=== PATIENT | male | born 1955 | race Caucasian/White ===

== ENCOUNTER → 2017-10-29 | Outpatient (CLI) | payer OTHER ==
--- NOTE | 2017-10-30 08:33 | US ---
EXAMINATION TYPE: US carotid duplex BILAT DATE OF EXAM: 10/29/2017 COMPARISON: NONE CLINICAL HISTORY: R55 Syncope, G45.4 Memory Loss. syncope EXAM MEASUREMENTS: RIGHT: Peak Systolic Velocity (PSV) cm/sec ----- Right CCA: 65.9 ----- Right ICA: 93.0 ----- Right ECA: 116.9 ICA/CCA ratio: 1.4 RIGHT: End Diastole cm/sec ----- Right CCA: 12.5 ----- Right ICA: 24.8 ----- Right ECA: 6.9 LEFT: Peak Systolic Velocity (PSV) cm/sec ----- Left CCA: 79.8 ----- Left ICA: 77.9 ----- Left ECA: 100.4 ICA/CCA ratio: 1.0 LEFT: End Diastole cm/sec ----- Left CCA: 12.9 ----- Left ICA: 17.7 ----- Left ECA: 11.1 VERTEBRALS (direction of flow): Right Vertebral: Antegrade Left Vertebral: Antegrade Rhythm: Normal Heterogeneous plaque noted bilaterally with no significant stenosis seen IMPRESSION: 1. Bilateral atherosclerotic plaque with no significant hemodynamic stenosis. Criteria for Assigning % of Stenosis / Diameter reduction (Estimation based on the indirect measurements of the internal carotid artery velocities (ICA PSV). 1. Normal (no stenosis)=ICA PSV < 125 cm/s: ratio < 2.0: ICA EDV<40 cm/s. 2. Less than 50% stenosis=ICA PSV < 125 cm/s: ratio < 2.0: ICA EDV<40 cm/s. 3. 50 to 69% stenosis=ICA PSV of 125 to 230 cm/s: ration 2.0 ? 4.0: ICA EDV 40-100 cm/s. 4. Greater than 70% stenosis to near occlusion= ICA PSV > 230 cm/s: ratio > 4.0: ICA EDV > 100 cm/s. 5. Near occlusion= ICA PSV velocities may be low or undetectable: variable ratio and ICA EDV. 6. Total occlusion=unable to detect flow.
== END | disposition home or self-care (01) ==
LOC: RADUSMAIN 16:04
PROVIDERS: ATTEND Family Medicine
DX: I65.23 Occlusion and stenosis of bilateral carotid arteries (principal); Z88.0 Allergy status to penicillin; Z88.5 Allergy status to narcotic agent; Z91.013 Allergy to seafood; Z91.048 Other nonmedicinal substance allergy status
CPT/HCPCS: 93880

== ENCOUNTER → 2018-05-12 | Outpatient (CLI) | payer OTHER ==
--- NOTE | 2018-05-12 12:34 | CT ---
EXAMINATION TYPE: CT wrist RT wo con DATE OF EXAM: 05/12/2018 COMPARISON: None. HISTORY: Right lateral wrist and thumb pain post fall per patient. Distal radial volar lip fracture p er order. CT DLP: 238 mGycm Automated exposure control for dose reduction was used. FINDINGS: Overlying fiberglass cast is present. There is acute comminuted impacted fracture through the distal radial meta-epiphysis. Fracture line extends to the distal radial ulnar articulation axial image 32. Fracture line extends to the dorsal surface including at base of Lorri's tubercle axial image 35. Ad jacent third extensor compartment tendon appears intact on axial image 34 for reference. Sagittal marianna ges show minimal dorsal angulation of distal radius relative to the lunate. Scapholunate and lunotriq uetral spaces are maintained. There is however intra-articular extension along dorsal surface seen be st coronal image 16 and sagittal image 18. There is tiny 3 mm avulsion type fracture from the ulnar styloid seen best axial image 28. Carpal joint spaces otherwise are preserved. Base of metacarpals felt within normal limits. Muscle bu lk is maintained. IMPRESSION: ACUTE COMMINUTED IMPACTED INTRA-ARTICULAR FRACTURE DISTAL RADIAL META-EPIPHYSIS DETAILED ABOVE. TI [place] AVULSION TYPE FRACTURE ULNAR STYLOID NOTED.
== END | disposition home or self-care (01) ==
LOC: RADCTMAIN 11:23
PROVIDERS: ATTEND Orthopaedic Surgery
DX: S52.571A Other intraarticular fracture of lower end of right radius, initial encounter for closed fracture (principal); S52.611A Displaced fracture of right ulna styloid process, initial encounter for closed fracture

== ENCOUNTER 2020-02-13 12:29 | Inpatient (IN) | payer OTHER ==
[2020-02-13] MEDS ORDERED: SODIUM CHLORIDE 0.9% 1,000 ML IV STA ×2 (13:08→13:52)
--- NOTE | 2020-02-13 13:10 | ED ---
General Adult HPI - General Chief complaint: Weakness Stated complaint: Syncope Time Seen by Provider: 02/13/20 12:32 Source: patient, EMS Mode of arrival: EMS Limitations: no limitations - History of Present Illness Initial comments: Dictation was produced using [employer] dictation software. please excuse any grammatical, word or spelling errors. This patient was cared for during a federal and state declared state of emergency secondary to Covid 19 Chief Complaint: 64-year-old male past medical history of hypertension COPD presents today with presyncope History of Present Illness: And 64-year-old male he woke up this morning feeling very lightheaded. He tried to get up however felt very dizzy lightheaded and slowly went down to the ground. Denies any loss of consciousness. He denies any pain. He doesn't take any blood thinners. EMS was called by his family member who then brought patient to the emergency department. Patient has any pain complaints. He did have runny nose since yesterday. No obvious exposures to anyone with coronavirus. He does feel short of breath only with exertion. He does not feel short of breath currently. Denies any constitutional symptoms. The ROS documented in this emergency department record has been reviewed and confirmed by me. Those systems with pertinent positive or negative responses have been documented in the HPI. All other systems are other negative and/or noncontributory. PHYSICAL EXAM: General Impression: Alert and oriented x3, not in acute distress, cachectic HEENT: Normocephalic atraumatic, extra-ocular movements intact, pupils equal and reactive to light bilaterally, mucous membranes moist. Cardiovascular: Tachycardia regular, no murmurs Chest: Able to complete full sentences, no retractions, no tachypnea, no wheezing Abdomen: abdomen soft, non-tender, non-distended, no organomegaly Musculoskeletal: Pulses present and equal in all extremities, no peripheral edema Motor: no focal deficits noted Neurological: CN II-XII grossly intact, no focal motor or sensory deficits noted Skin: Intact with no visualized rashes Psych: Normal affect and mood ED course: 64-year-old male presents with presyncope. Patient also having urinary Symptoms. Signs upon arrival shows 70% on room air, respiratory 26 pulse rate of 122 Supplemental oxygen with levels measuring in the high 80s low 90s. Continue be tachypneic and a 25. Laboratory evaluation obtained. No leukocytosis. CBC is grossly unremarkable. Panel shows sodium 131. BUN 49. Lactic acid is 4.6. CRP of 381.5. Urinalysis is unremarkable. Chest x-ray shows COPD with extensive airspace disease throughout the left lung which could reflect extensive pneumonia or underlying mass complicated with pneumonia. CT angiogram of the chest was obtained showing no evidence for pulmonary embolism however there is left upper lobe and left lower lobe extensive airspace consolidation. There is no obstruction to the left lower lobe bronchus. Patient was reevaluated at approximately 4:30 PM his oxygen saturations began to drop into the 30s and 40 percents. Patient was resuscitated. Rapid sequence intubation was performed. Patient's oxygen saturation improved. Case is discussed in detail with Dr. Olivares who is on-call license distributor. Was agreeable with ICU admission. Patient also will likely require bronchoscopy in the near future. Patient will be admitted to [facility]. Case was discussed with Dr. Li. She'll be warning in the emergency Department ICU bed becomes available. Sepsis is a concern however less likely given that patient is afebrile and has no leukocytosis however. Patient is covered with vancomycin and cefepime. Patient's lactic acidosis likely secondary to lung disease. Is not obvious that patient is suffering from an infectious process. At this point aggressive IV fluid administration is possibly harmful. EKG interpretation: Ventricular rate 124, sinus tachycardia, WV interval 126, QRS 74, QTC 456. No WV prolongation, no QTC prolongation, no ST or T-wave changes noted. No old EKG for comparison. Overall, this EKG is unremarkable - Related Data Home Medications Medication Instructions Recorded Confirmed Albuterol Nebulized [Ventolin 2.5 mg INHALATION RT-Q6H PRN 08/25/15 02/13/20 Nebulized] Fluticasone Nasal [place] [Flonase 1 spray EA NOSTRIL DAILY 08/25/15 02/13/20 Nasal [place]] Simvastatin [Zocor] 40 mg PO HS 08/25/15 02/13/20 Fluticasone Propionate [Flovent 1 puff INHALATION RT-DAILY 02/13/20 02/13/20 Hfa 110 mcg] Ipratropium/Albuter 20-100Mcg 1 puff INHALATION RT-QID 02/13/20 02/13/20 [Combivent Respimat 20-100Mcg Inhaler] Metoprolol Succinate [Toprol XL] 50 mg PO DAILY 02/13/20 02/13/20 Omeprazole 20 mg PO DAILY 02/13/20 02/13/20 Oxybutynin ER [Ditropan Xl] 15 mg PO DAILY 02/13/20 02/13/20 Allergies Allergy/AdvReac Type Severity Reaction Status Date / Time codeine Allergy Unknown Verified 02/13/20 14:25 Iodine and Iodide Containing Allergy Rash/Hives Verified 02/13/20 14:25 Produc Penicillins Allergy Swelling,it Verified 02/13/20 14:25 le shellfish derived Allergy Rash/Hives Verified 02/13/20 14:25 Review of Systems ROS Statement: Those systems with pertinent positive or pertinent negative responses have been documented in the HPI. ROS Other: All systems not noted in ROS Statement are negative. Past Medical History Past Medical History: COPD, Hypertension History of Any Multi-Drug Resistant Organisms: None Reported Past Surgical History: Orthopedic Surgery Past Psychological History: No Psychological Hx Reported Smoking Status: Current every day smoker Past Alcohol Use History: None Reported Past Drug Use History: None Reported General Exam Limitations: no limitations Course Vital Signs 02/13/20 02/13/20 02/13/20 12:30 12:45 14:00 Temperature 98.1 F Pulse Rate 122 H 123 H Pulse Rate [ 125 H [employer] Of [employer] ] Respiratory 26 H 26 H 25 H Rate Blood Pressure 133/63 83/65 O2 Sat by Pulse 78 L 87 L Oximetry 02/13/20 02/13/20 15:00 16:52 Temperature Pulse Rate 117 H Pulse Rate [ [employer] ] Respiratory 26 H 24 Rate Blood Pressure 114/89 O2 Sat by Pulse 90 L 99 Oximetry Procedures - Intubation Sedative: Etomidate Mg Given: 20 Paralytic: Succinylcholine Mg Given: 100 Laryngoscope: [place] Size: 3 ET Tube Size: 7.5 ET Tube Uncuffed: No Tube Secured Depth (cm): 22 Tube Secured Location: lips Tube Placement Confirmation: visualized tube passing through cords, equal breath sounds bilaterally, no breath sounds over epigastrium, confirmation by capnometry Patient Tolerated Procedure: well Intubation Complications: none Medical Decision Making - Lab Data Result diagrams: 02/13/20 13:10 02/13/20 13:54 Lab Results 02/13/20 02/13/20 02/13/20 Range/Units 13:10 13:10 13:16 WBC 7.5 (3.8-10.6) k/uL RBC 4.70 (4.30-5.90) m/uL Hgb 14.6 (13.0-17.5) gm/dL Hct 45.6 (39.0-53.0) % MCV 97.2 (80.0-100.0) fL MCH 31.1 (25.0-35.0) pg MCHC 32.1 (31.0-37.0) g/dL RDW 13.4 (11.5-15.5) % Plt Count 211 (150-450) k/uL MPV 8.1 Neutrophils % (Manual) 57 % Band Neuts % (Manual) 23 % Lymphocytes % (Manual) 9 % Monocytes % (Manual) 3 % Metamyelocytes % 9 % Myelocytes % 1 % Neutrophils # (Manual) 6.00 (1.3-7.7) k/uL Lymphocytes # (Manual) 0.68 L (1.0-4.8) k/uL Monocytes # (Manual) 0.23 (0-1.0) k/uL Metamyelocytes # (Man) 0.68 H (0) k/uL Myelocytes # (Manual) 0.08 H (0) k/uL Nucleated RBCs 0 (0-0) /100 WBC Manual Slide Review Performed Toxic Granulation Present Anisocytosis (manual) Present PT (9.0-12.0) sec INR (<1.2) APTT (22.0-30.0) sec D-Dimer (<0.60) mg/L FEU Sample Site ABG pH (7.35-7.45) ABG pCO2 (35-45) mmHg ABG pO2 (83-108) mmHg ABG HCO3 (21-25) mmol/L ABG Total CO2 (19-24) mmol/L ABG O2 Saturation (94-97) % ABG Base Excess mmol/L Floyd Test FiO2 % Sodium (137-145) mmol/L Potassium (3.5-5.1) mmol/L Chloride (98-107) mmol/L Carbon Dioxide (22-30) mmol/L Anion Gap mmol/L BUN (9-20) mg/dL Creatinine (0.66-1.25) mg/dL Est GFR (CKD-EPI)AfAm (>60 ml/min/1.73 sqM) Est GFR (CKD-EPI)NonAf (>60 ml/min/1.73 sqM) Glucose (74-99) mg/dL Lactic Ac Sepsis Rflx Plasma Lactic Acid Elio 4.6 H* (0.7-2.0) mmol/L Calcium (8.4-10.2) mg/dL Magnesium (1.6-2.3) mg/dL Total Bilirubin (0.2-1.3) mg/dL AST (17-59) U/L ALT (4-49) U/L Alkaline Phosphatase (38-126) U/L Creatine Kinase (55-170) U/L Troponin I (0.000-0.034) ng/mL C-Reactive Protein (<10.0) mg/L Total Protein (6.3-8.2) g/dL Albumin (3.5-5.0) g/dL Urine Color Urine Appearance (Clear) Urine pH (5.0-8.0) Ur Specific [place] (1.001-1.035) Urine Protein (Negative) Urine Glucose (UA) (Negative) Urine Ketones (Negative) Urine Blood (Negative) Urine Nitrite (Negative) Urine Bilirubin (Negative) Urine Urobilinogen (<2.0) mg/dL Ur Leukocyte Esterase (Negative) Urine RBC (0-5) /hpf Urine WBC (0-5) /hpf Hyaline Casts (0-2) /lpf Urine Mucus (None) /hpf Urine Sperm (None) /hpf Coronavirus (PCR) Not Detected (Not Detectd) 02/13/20 02/13/20 02/13/20 Range/Units 13:45 13:54 13:54 WBC (3.8-10.6) k/uL RBC (4.30-5.90) m/uL Hgb (13.0-17.5) gm/dL Hct (39.0-53.0) % MCV (80.0-100.0) fL MCH (25.0-35.0) pg MCHC (31.0-37.0) g/dL RDW (11.5-15.5) % Plt Count (150-450) k/uL MPV Neutrophils % (Manual) % Band Neuts % (Manual) % Lymphocytes % (Manual) % Monocytes % (Manual) % Metamyelocytes % % Myelocytes % % Neutrophils # (Manual) (1.3-7.7) k/uL Lymphocytes # (Manual) (1.0-4.8) k/uL Monocytes # (Manual) (0-1.0) k/uL Metamyelocytes # (Man) (0) k/uL Myelocytes # (Manual) (0) k/uL Nucleated RBCs (0-0) /100 WBC Manual Slide Review Toxic Granulation Anisocytosis (manual) PT (9.0-12.0) sec INR (<1.2) APTT (22.0-30.0) sec D-Dimer (<0.60) mg/L FEU Sample Site ABG pH (7.35-7.45) ABG pCO2 (35-45) mmHg ABG pO2 (83-108) mmHg ABG HCO3 (21-25) mmol/L ABG Total CO2 (19-24) mmol/L ABG O2 Saturation (94-97) % ABG Base Excess mmol/L Floyd Test FiO2 % Sodium 131 L (137-145) mmol/L Potassium 4.6 (3.5-5.1) mmol/L Chloride 101 (98-107) mmol/L Carbon Dioxide 24 (22-30) mmol/L Anion Gap 6 mmol/L BUN 49 H (9-20) mg/dL Creatinine 1.04 (0.66-1.25) mg/dL Est GFR (CKD-EPI)AfAm 89 (>60 ml/min/1.73 sqM) Est GFR (CKD-EPI)NonAf 77 (>60 ml/min/1.73 sqM) Glucose 105 H (74-99) mg/dL Lactic Ac Sepsis Rflx Y Plasma Lactic Acid Elio (0.7-2.0) mmol/L Calcium 8.5 (8.4-10.2) mg/dL Magnesium 2.2 (1.6-2.3) mg/dL Total Bilirubin 0.8 (0.2-1.3) mg/dL AST 31 (17-59) U/L ALT 24 (4-49) U/L Alkaline Phosphatase 53 (38-126) U/L Creatine Kinase 116 (55-170) U/L Troponin I 0.030 (0.000-0.034) ng/mL C-Reactive Protein 381.5 H (<10.0) mg/L Total Protein 5.4 L (6.3-8.2) g/dL Albumin 2.7 L (3.5-5.0) g/dL Urine Color Urine Appearance (Clear) Urine pH (5.0-8.0) Ur Specific [place] (1.001-1.035) Urine Protein (Negative) Urine Glucose (UA) (Negative) Urine Ketones (Negative) Urine Blood (Negative) Urine Nitrite (Negative) Urine Bilirubin (Negative) Urine Urobilinogen (<2.0) mg/dL Ur Leukocyte Esterase (Negative) Urine RBC (0-5) /hpf Urine WBC (0-5) /hpf Hyaline Casts (0-2) /lpf Urine Mucus (None) /hpf Urine Sperm (None) /hpf Coronavirus (PCR) (Not Detectd) 02/13/20 02/13/20 02/13/20 Range/Units 13:58 15:23 15:55 WBC (3.8-10.6) k/uL RBC (4.30-5.90) m/uL Hgb (13.0-17.5) gm/dL Hct (39.0-53.0) % MCV (80.0-100.0) fL MCH (25.0-35.0) pg MCHC (31.0-37.0) g/dL RDW (11.5-15.5) % Plt Count (150-450) k/uL MPV Neutrophils % (Manual) % Band Neuts % (Manual) % Lymphocytes % (Manual) % Monocytes % (Manual) % Metamyelocytes % % Myelocytes % % Neutrophils # (Manual) (1.3-7.7) k/uL Lymphocytes # (Manual) (1.0-4.8) k/uL Monocytes # (Manual) (0-1.0) k/uL Metamyelocytes # (Man) (0) k/uL Myelocytes # (Manual) (0) k/uL Nucleated RBCs (0-0) /100 WBC Manual Slide Review Toxic Granulation Anisocytosis (manual) PT 11.1 (9.0-12.0) sec INR 1.1 (<1.2) APTT 26.4 (22.0-30.0) sec D-Dimer 11.14 H (<0.60) mg/L FEU Sample Site r rad ABG pH 7.24 L (7.35-7.45) ABG pCO2 55 H (35-45) mmHg ABG pO2 77 L (83-108) mmHg ABG HCO3 24 (21-25) mmol/L ABG Total CO2 26 H (19-24) mmol/L ABG O2 Saturation 93.5 L (94-97) % ABG Base Excess -3.6 mmol/L Floyd Test Yes FiO2 40 % Sodium (137-145) mmol/L Potassium (3.5-5.1) mmol/L Chloride (98-107) mmol/L Carbon Dioxide (22-30) mmol/L Anion Gap mmol/L BUN (9-20) mg/dL Creatinine (0.66-1.25) mg/dL Est GFR (CKD-EPI)AfAm (>60 ml/min/1.73 sqM) Est GFR (CKD-EPI)NonAf (>60 ml/min/1.73 sqM) Glucose (74-99) mg/dL Lactic Ac Sepsis Rflx Plasma Lactic Acid Elio (0.7-2.0) mmol/L Calcium (8.4-10.2) mg/dL Magnesium (1.6-2.3) mg/dL Total Bilirubin (0.2-1.3) mg/dL AST (17-59) U/L ALT (4-49) U/L Alkaline Phosphatase (38-126) U/L Creatine Kinase (55-170) U/L Troponin I (0.000-0.034) ng/mL C-Reactive Protein (<10.0) mg/L Total Protein (6.3-8.2) g/dL Albumin (3.5-5.0) g/dL Urine Color Yellow Urine Appearance Cloudy (Clear) Urine pH 6.0 (5.0-8.0) Ur Specific [place] 1.023 (1.001-1.035) Urine Protein 1+ H (Negative) Urine Glucose (UA) Negative (Negative) Urine Ketones Negative (Negative) Urine Blood Trace H (Negative) Urine Nitrite Negative (Negative) Urine Bilirubin Negative (Negative) Urine Urobilinogen 2.0 (<2.0) mg/dL Ur Leukocyte Esterase Negative (Negative) Urine RBC 4 (0-5) /hpf Urine WBC 8 H (0-5) /hpf Hyaline Casts 15 H (0-2) /lpf Urine Mucus Occasional H (None) /hpf Urine Sperm Moderate H (None) /hpf Coronavirus (PCR) (Not Detectd) Critical Care Time Critical Care Time: Yes Total Critical Care Time: 33 Disposition Clinical Impression: Acute respiratory failure with hypoxia, Pre-syncope Disposition: ADMITTED IP TO THIS [facility] Condition: Critical Referrals: Francisco Nolan DO [Primary Care Provider] - 1-2 days Decision Time: 17:05
--- NOTE | 2020-02-13 13:35 | XR ---
EXAMINATION TYPE: XR chest 1V portable DATE OF EXAM: 02/13/2020 Comparison: None Clinical History: 64-year-old male tachycardia, weakness, hypoxia Findings: Heart normal size. Atherosclerotic arch calcifications. Hyperinflation. Extensive consolidation throu ghout the left lung. Impression: COPD with extensive airspace disease throughout the left lung. Findings could reflect extensive pneum onia or underlying mass complicated with pneumonia. Follow-up after treatment to ensure clearance.
[2020-02-13 13:36] LABS: HCT 45.6 % (39.0-53.0); HGB 14.6 gm/dL (13.0-17.5); MCH 31.1 pg (25.0-35.0); MCHC 32.1 g/dL (31.0-37.0); MCV 97.2 fL (80.0-100.0); Mean Platelet Volume 8.1; Platelet Count 211 k/uL (150-450); RDW 13.4 % (11.5-15.5); WBC 7.5 k/uL (3.8-10.6)
[2020-02-13 14:09] LABS: Anisocytosis (M) Present; Band Neutrophils % 23 %; Lymphocytes # (M) 0.68 k/uL (1.0-4.8); Metamyelocytes # (M) 0.68 k/uL (0); Metamyelocytes % 9 %; Monocytes # (M) 0.23 k/uL (0-1.0); Myelocytes # (M) 0.08 k/uL (0); Myelocytes % 1 %; Neutrophils % (M) 57 %; Nucleated Red Blood Cells 0 /100 WBC (0-0); Total Cells Counted 200; Toxic Granulation Present
[2020-02-13 14:26] LABS: Albumin 2.7 g/dL (3.5-5.0); Calcium 8.5 mg/dL (8.4-10.2); Magnesium 2.2 mg/dL (1.6-2.3); Potassium 4.6 mmol/L (3.5-5.1); Total Bilirubin 0.8 mg/dL (0.2-1.3); Total Protein 5.4 g/dL (6.3-8.2)
[2020-02-13 14:32] LABS: INR 1.1 (<1.2); Partial Thromboplastin Time 26.4 sec (22.0-30.0); Prothrombin Time 11.1 sec (9.0-12.0)
[2020-02-13 14:36] LABS: C Reactive Protein 381.5 mg/L (<10.0)
[2020-02-13 14:44] LABS: D-Dimer 11.14 mg/L FEU (<0.60)
[2020-02-13] MEDS ORDERED: FAMOTIDINE 20 MG/2 ML VIAL IV STA (15:06)
[2020-02-13] MEDS ORDERED: diphenhydrAMINE 50 MG/ML 1 ML VIAL IVP STA (15:06)
[2020-02-13] MEDS ORDERED: methylPREDNISolone SOD SUCCI 125 MG/2 ML VIAL IV STA (15:06)
[2020-02-13 15:43] LABS: Appearance,Urine Cloudy (Clear); Bilirubin,Urine Negative (Negative); Blood,Urine Trace (Negative); Color,Urine Yellow; Glucose,Urine (UA) Negative (Negative); Hyaline Casts,Urine 15 /lpf (0-2); Ketones,Urine Negative (Negative); Leukocyte Esterase,Urine Negative (Negative); Mucus,Urine Occasional /hpf; Nitrite,Urine Negative (Negative); Protein,Urine 1+ (Negative); RBC,Urine 4 /hpf (0-5); Specific Gravity,Urine 1.023 (1.001-1.035); Sperm,Urine Moderate /hpf; WBC,Urine 8 /hpf (0-5)
[2020-02-13 15:59] LABS: ABG Base Excess -3.6 mmol/L; ABG HCO3 24 mmol/L (21-25); ABG Oxygen Saturation 93.5 % (94-97); ABG PCO2 55 mmHg (35-45); ABG PH 7.24 (7.35-7.45); ABG PO2 77 mmHg (83-108); ABG TCO2 26 mmol/L (19-24); Allen Test Performed? Yes
--- NOTE | 2020-02-13 16:08 | CT ---
EXAMINATION TYPE: CT angio chest DATE OF EXAM: 02/13/2020 COMPARISON: None HISTORY: elevated d-dimer CT DLP: 234.8 mGycm Automated exposure control for dose reduction was used. CONTRAST: Performed with IV Contrast, patient injected with 100 mL of Isovue 370. There are 3-D post processed images. There is diffuse pulmonary emphysema. There is bullous disease. There are mediastinal multiple lymph nodes measuring up to 1.5 cm. There are no hilar masses. There is dense airspace consolidation in the left lung involving the left lower lobe and significant portion of the left upper lobe. There is apparent complete occlusion of the left lower lobe bronchus. Thoracic aorta is intact. There is no aneurysm or dissection. There is normal contrast opacification of the pulmonary arteries. There are no filling defects. Thoracic vertebra have normal spacing and alignment. There is no compression fracture. Sternum is int act. The ribs appear intact. IMPRESSION: No evidence of pulmonary embolism. Left upper lobe and left lower lobe extensive airspace consolidation. Obstruction left lower lobe bro nchus. Pulmonary emphysema. Nonspecific mediastinal lymph nodes. Likely inflammatory.
[2020-02-13] MEDS ORDERED: ETOMIDATE 2 MG/ML 10 ML VIAL IVP STA (16:45)
[2020-02-13] MEDS ORDERED: SUCCINYLCHOLINE CHLORIDE VIAL 200 MG/10 ML VIAL IV STA (16:46)
[2020-02-13] MEDS ORDERED: NALOXONE 0.4 MG/ML 1 ML VIAL IV PRN (16:52)
[2020-02-13] MEDS ORDERED: CEFEPIME 2 GM in SODIUM CHLORIDE 0.9% 100 ML IVPB STA (16:53)
[2020-02-13] MEDS ORDERED: VANCOMYCIN IV PER PHARMACY 1 EACH MISC MISCELLANE PRN (16:54)
--- NOTE | 2020-02-13 17:19 | XR ---
EXAMINATION TYPE: XR chest 1V DATE OF EXAM: 02/13/2020 COMPARISON: 02/13/2020 HISTORY: Check tube placement TECHNIQUE: Single view FINDINGS: Endotracheal tube is 5 cm from the bandar. There is nasogastric tube in the gastric fundus. There is diffuse airspace consolidation in the left lung there is pulmonary emphysema. There is no d efinite heart failure. Heart size is normal. IMPRESSION: Tubing in good position. Extensive airspace consolidation in the left lung unchanged comp ared to the exam 4 hours ago.
[2020-02-13] MEDS ORDERED: VANCOMYCIN 1,000 MG in SODIUM CHLORIDE 0.9% 250 ML IVPB ONE (17:30)
[2020-02-13 17:36] LABS: ABG Base Excess -6.4 mmol/L; ABG HCO3 21 mmol/L (21-25); ABG Oxygen Saturation 91.7 % (94-97); ABG PCO2 53 mmHg (35-45); ABG PH 7.22 (7.35-7.45); ABG PO2 73 mmHg (83-108); ABG TCO2 23 mmol/L (19-24); Allen Test Performed? Yes
--- NOTE | 2020-02-13 19:24 | CONS ---
CONSULTATION PULMONARY/CRITICAL CARE CONSULTATION: DATE OF SERVICE: February 13, 2020. This is a 64-year-old male who is evaluated in the emergency department. The patient apparently came in via EMS. He arrived here at 12:29 p.m. today. He apparently came in with complaints of weakness. He apparently woke up this morning and felt very lightheaded. He apparently tried to get up and felt very dizzy and apparently fell to the ground. There was no loss of consciousness. Denies any chest pain. EMS was called by family members. The patient was transported to the ER where he was evaluated. Apparently he was complaining of a bit of a runny nose and has no apparent exposures to anyone with coronavirus. He apparently did complain of being short of breath on exertion. No fever or chills. No other history could be obtained by Dr. Chowdhury in the emergency room. Apparently on arrival, his saturations were 70% on room air, with a respiratory rate of 26 and pulse rate of 122. He received supplemental oxygen. A chest x-ray showed extensive left lung pneumonia. A CT angiogram was also done which showed no evidence of pulmonary embolism, but extensive left upper lobe and left lower lobe airspace consolidation. Subsequent to that, his saturations began to drop and he developed worsening respiratory status and rapid sequence intubation was performed. Dr. Chowdhury called me. We came down to see the patient in the emergency room. Currently, he is on the volume assist-control modality, rate of 20, tidal volume 500, FiO2 100%, PEEP of 5. Blood gases showed a pO2 of 77, pCO2 of 55 and a pH of 7.24. This initial blood gas was done on 5 L. Followup blood gas while vented, shows a pO2 of 72, pCO2 of 52 and a pH is 7.21. The rate was increased from 20 to 26. His chest x-ray and CT scan shows extensive left-sided pneumonia. He is currently on saline, unknown rate, and also propofol at 5 mcg/kg/minute. We are attempting to find a bed for him in the ICU, but currently there is nothing available. CURRENT MEDICATIONS: Include albuterol, Flonase nasal spray, Zocor, Flovent, Combivent, metoprolol, omeprazole, and Ditropan XL. ALLERGIES: Include CODEINE, IODINE CONTAINING PRODUCTS, PENICILLIN, AND SHELLFISH. MEDICAL HISTORY: Apparently includes hypertension, hyperlipidemia, and COPD. SURGICAL HISTORY: Includes some orthopedic procedures. SOCIAL HISTORY: Positive for current everyday tobacco use. No alcohol use or illicit drug use. REVIEW OF SYSTEMS: Cannot be obtained. FAMILY HISTORY: Not available. PHYSICAL EXAMINATION: VITAL SIGNS: Current vital signs include a temperature which is 98.1, heart rate 117, respiratory rate 26, blood pressure 120/61, mean 80, saturations are in the mid 90s. Currently sedated. HEENT: Examination is grossly unremarkable. There is an orally placed endotracheal tube. NECK: Supple. Full range of motion. CARDIOVASCULAR: Examination reveals tachycardia. Heart rate about 115. Appears to be in sinus rhythm. LUNGS: Reveal diffuse coarse bilateral rhonchi. Breath sounds diminished on the left. Crackles are noted on the left. ABDOMEN: Soft. EXTREMITIES: Intact. No edema. SKIN: Without rash. NEUROLOGIC: Examination cannot be adequately assessed as he is currently sedated. LABS: Reviewed. Again blood gases have been noted. The 1st blood gas was on 5 L. A 2nd blood gas was status post intubation. White count 7.5, hemoglobin 14.6, hematocrit 45.6, platelet count 211,000. PT/INR normal. PTT 26.4. D-dimer 11.14. Sodium 131, potassium 4.6, chloride 101, CO2 24, anion gap is 6,. BUN and creatinine were 49 and 1.04. Lactic acid 4.6 repeat is not yet done. C-reactive protein 381.5. Albumin 2.7. Urine is 1+ protein, trace blood, 8 WBCs. Coronavirus test by PCR was negative. Microbiology is pending or negative. Chest x-ray shows an extensive infiltrate in the left lung. The right lung is relatively clear. There are changes of COPD. A CT angiogram was negative for PE. There was extensive left upper lobe and left lower lobe airspace consolidation. There was obstruction to the left lower lobe bronchus. Nonspecific mediastinal adenopathy is noted, probably inflammatory in nature. Post intubation, no significant change to the left chest. The endotracheal tube is above the tracheal bandar. CURRENT MEDICATIONS: Include Narcan, vancomycin. ASSESSMENT: 1. Acute hypoxemic respiratory failure, secondary to extensive left-sided pneumonia, requiring intubation and mechanical ventilation on February 13, 2020. 2. History of chronic obstructive pulmonary disease from chronic tobacco use. 3. History of hypertension. 4. History of hyperlipidemia. PLAN: The patient will be admitted to the ICU. We will write some basic orders including DuoNeb, ceftriaxone, Rocephin, and maintain the vancomycin. Additional recommendations and suggestions are forthcoming. We will also add some Perforomist and Pulmicort. Tube feeds will start. Eventually he will probably need bronchoscopy. Prognosis is very guarded. MMODL / IJN: [id number] /
[2020-02-13] MEDS ORDERED: MIDAZOLAM 1 MG/ML 5 ML VIAL IV STA (19:25)
--- NOTE | 2020-02-13 19:27 | ED ---
Medical Decision Making - Lab Data Result diagrams: 02/13/20 13:10 02/13/20 13:54 Lab Results 02/13/20 02/13/20 02/13/20 Range/Units 13:10 13:10 13:16 WBC 7.5 (3.8-10.6) k/uL RBC 4.70 (4.30-5.90) m/uL Hgb 14.6 (13.0-17.5) gm/dL Hct 45.6 (39.0-53.0) % MCV 97.2 (80.0-100.0) fL MCH 31.1 (25.0-35.0) pg MCHC 32.1 (31.0-37.0) g/dL RDW 13.4 (11.5-15.5) % Plt Count 211 (150-450) k/uL MPV 8.1 Neutrophils % (Manual) 57 % Band Neuts % (Manual) 23 % Lymphocytes % (Manual) 9 % Monocytes % (Manual) 3 % Metamyelocytes % 9 % Myelocytes % 1 % Neutrophils # (Manual) 6.00 (1.3-7.7) k/uL Lymphocytes # (Manual) 0.68 L (1.0-4.8) k/uL Monocytes # (Manual) 0.23 (0-1.0) k/uL Metamyelocytes # (Man) 0.68 H (0) k/uL Myelocytes # (Manual) 0.08 H (0) k/uL Nucleated RBCs 0 (0-0) /100 WBC Manual Slide Review Performed Toxic Granulation Present Anisocytosis (manual) Present PT (9.0-12.0) sec INR (<1.2) APTT (22.0-30.0) sec D-Dimer (<0.60) mg/L FEU Sample Site ABG pH (7.35-7.45) ABG pCO2 (35-45) mmHg ABG pO2 (83-108) mmHg ABG HCO3 (21-25) mmol/L ABG Total CO2 (19-24) mmol/L ABG O2 Saturation (94-97) % ABG Base Excess mmol/L Floyd Test FiO2 % Sodium (137-145) mmol/L Potassium (3.5-5.1) mmol/L Chloride (98-107) mmol/L Carbon Dioxide (22-30) mmol/L Anion Gap mmol/L BUN (9-20) mg/dL Creatinine (0.66-1.25) mg/dL Est GFR (CKD-EPI)AfAm (>60 ml/min/1.73 sqM) Est GFR (CKD-EPI)NonAf (>60 ml/min/1.73 sqM) Glucose (74-99) mg/dL Lactic Ac Sepsis Rflx Plasma Lactic Acid Elio 4.6 H* (0.7-2.0) mmol/L Calcium (8.4-10.2) mg/dL Magnesium (1.6-2.3) mg/dL Total Bilirubin (0.2-1.3) mg/dL AST (17-59) U/L ALT (4-49) U/L Alkaline Phosphatase (38-126) U/L Creatine Kinase (55-170) U/L Troponin I (0.000-0.034) ng/mL C-Reactive Protein (<10.0) mg/L Total Protein (6.3-8.2) g/dL Albumin (3.5-5.0) g/dL Urine Color Urine Appearance (Clear) Urine pH (5.0-8.0) Ur Specific [place] (1.001-1.035) Urine Protein (Negative) Urine Glucose (UA) (Negative) Urine Ketones (Negative) Urine Blood (Negative) Urine Nitrite (Negative) Urine Bilirubin (Negative) Urine Urobilinogen (<2.0) mg/dL Ur Leukocyte Esterase (Negative) Urine RBC (0-5) /hpf Urine WBC (0-5) /hpf Hyaline Casts (0-2) /lpf Urine Mucus (None) /hpf Urine Sperm (None) /hpf Coronavirus (PCR) Not Detected (Not Detectd) 02/13/20 02/13/20 02/13/20 Range/Units 13:45 13:54 13:54 WBC (3.8-10.6) k/uL RBC (4.30-5.90) m/uL Hgb (13.0-17.5) gm/dL Hct (39.0-53.0) % MCV (80.0-100.0) fL MCH (25.0-35.0) pg MCHC (31.0-37.0) g/dL RDW (11.5-15.5) % Plt Count (150-450) k/uL MPV Neutrophils % (Manual) % Band Neuts % (Manual) % Lymphocytes % (Manual) % Monocytes % (Manual) % Metamyelocytes % % Myelocytes % % Neutrophils # (Manual) (1.3-7.7) k/uL Lymphocytes # (Manual) (1.0-4.8) k/uL Monocytes # (Manual) (0-1.0) k/uL Metamyelocytes # (Man) (0) k/uL Myelocytes # (Manual) (0) k/uL Nucleated RBCs (0-0) /100 WBC Manual Slide Review Toxic Granulation Anisocytosis (manual) PT (9.0-12.0) sec INR (<1.2) APTT (22.0-30.0) sec D-Dimer (<0.60) mg/L FEU Sample Site ABG pH (7.35-7.45) ABG pCO2 (35-45) mmHg ABG pO2 (83-108) mmHg ABG HCO3 (21-25) mmol/L ABG Total CO2 (19-24) mmol/L ABG O2 Saturation (94-97) % ABG Base Excess mmol/L Floyd Test FiO2 % Sodium 131 L (137-145) mmol/L Potassium 4.6 (3.5-5.1) mmol/L Chloride 101 (98-107) mmol/L Carbon Dioxide 24 (22-30) mmol/L Anion Gap 6 mmol/L BUN 49 H (9-20) mg/dL Creatinine 1.04 (0.66-1.25) mg/dL Est GFR (CKD-EPI)AfAm 89 (>60 ml/min/1.73 sqM) Est GFR (CKD-EPI)NonAf 77 (>60 ml/min/1.73 sqM) Glucose 105 H (74-99) mg/dL Lactic Ac Sepsis Rflx Y Plasma Lactic Acid Elio (0.7-2.0) mmol/L Calcium 8.5 (8.4-10.2) mg/dL Magnesium 2.2 (1.6-2.3) mg/dL Total Bilirubin 0.8 (0.2-1.3) mg/dL AST 31 (17-59) U/L ALT 24 (4-49) U/L Alkaline Phosphatase 53 (38-126) U/L Creatine Kinase 116 (55-170) U/L Troponin I 0.030 (0.000-0.034) ng/mL C-Reactive Protein 381.5 H (<10.0) mg/L Total Protein 5.4 L (6.3-8.2) g/dL Albumin 2.7 L (3.5-5.0) g/dL Urine Color Urine Appearance (Clear) Urine pH (5.0-8.0) Ur Specific [place] (1.001-1.035) Urine Protein (Negative) Urine Glucose (UA) (Negative) Urine Ketones (Negative) Urine Blood (Negative) Urine Nitrite (Negative) Urine Bilirubin (Negative) Urine Urobilinogen (<2.0) mg/dL Ur Leukocyte Esterase (Negative) Urine RBC (0-5) /hpf Urine WBC (0-5) /hpf Hyaline Casts (0-2) /lpf Urine Mucus (None) /hpf Urine Sperm (None) /hpf Coronavirus (PCR) (Not Detectd) 02/13/20 02/13/20 02/13/20 Range/Units 13:58 15:23 15:55 WBC (3.8-10.6) k/uL RBC (4.30-5.90) m/uL Hgb (13.0-17.5) gm/dL Hct (39.0-53.0) % MCV (80.0-100.0) fL MCH (25.0-35.0) pg MCHC (31.0-37.0) g/dL RDW (11.5-15.5) % Plt Count (150-450) k/uL MPV Neutrophils % (Manual) % Band Neuts % (Manual) % Lymphocytes % (Manual) % Monocytes % (Manual) % Metamyelocytes % % Myelocytes % % Neutrophils # (Manual) (1.3-7.7) k/uL Lymphocytes # (Manual) (1.0-4.8) k/uL Monocytes # (Manual) (0-1.0) k/uL Metamyelocytes # (Man) (0) k/uL Myelocytes # (Manual) (0) k/uL Nucleated RBCs (0-0) /100 WBC Manual Slide Review Toxic Granulation Anisocytosis (manual) PT 11.1 (9.0-12.0) sec INR 1.1 (<1.2) APTT 26.4 (22.0-30.0) sec D-Dimer 11.14 H (<0.60) mg/L FEU Sample Site r rad ABG pH 7.24 L (7.35-7.45) ABG pCO2 55 H (35-45) mmHg ABG pO2 77 L (83-108) mmHg ABG HCO3 24 (21-25) mmol/L ABG Total CO2 26 H (19-24) mmol/L ABG O2 Saturation 93.5 L (94-97) % ABG Base Excess -3.6 mmol/L Floyd Test Yes FiO2 40 % Sodium (137-145) mmol/L Potassium (3.5-5.1) mmol/L Chloride (98-107) mmol/L Carbon Dioxide (22-30) mmol/L Anion Gap mmol/L BUN (9-20) mg/dL Creatinine (0.66-1.25) mg/dL Est GFR (CKD-EPI)AfAm (>60 ml/min/1.73 sqM) Est GFR (CKD-EPI)NonAf (>60 ml/min/1.73 sqM) Glucose (74-99) mg/dL Lactic Ac Sepsis Rflx Plasma Lactic Acid Elio (0.7-2.0) mmol/L Calcium (8.4-10.2) mg/dL Magnesium (1.6-2.3) mg/dL Total Bilirubin (0.2-1.3) mg/dL AST (17-59) U/L ALT (4-49) U/L Alkaline Phosphatase (38-126) U/L Creatine Kinase (55-170) U/L Troponin I (0.000-0.034) ng/mL C-Reactive Protein (<10.0) mg/L Total Protein (6.3-8.2) g/dL Albumin (3.5-5.0) g/dL Urine Color Yellow Urine Appearance Cloudy (Clear) Urine pH 6.0 (5.0-8.0) Ur Specific [place] 1.023 (1.001-1.035) Urine Protein 1+ H (Negative) Urine Glucose (UA) Negative (Negative) Urine Ketones Negative (Negative) Urine Blood Trace H (Negative) Urine Nitrite Negative (Negative) Urine Bilirubin Negative (Negative) Urine Urobilinogen 2.0 (<2.0) mg/dL Ur Leukocyte Esterase Negative (Negative) Urine RBC 4 (0-5) /hpf Urine WBC 8 H (0-5) /hpf Hyaline Casts 15 H (0-2) /lpf Urine Mucus Occasional H (None) /hpf Urine Sperm Moderate H (None) /hpf Coronavirus (PCR) (Not Detectd) Disposition Clinical Impression: Acute respiratory failure with hypoxia, Pre-syncope Disposition: ADMITTED IP TO THIS [facility] Condition: Critical Decision Time: 19:27 Procedures - Restraint - Face to Face Restraint Occurrence 1 Patient's Immediate Situation: Endangers self safety Patient's Reaction to the Intervention: Appropriate, Calm Patient's Medical & Behavioral Condition: Awake Need to Continue or Terminate Restraint or Seclusion: Continue Face to Face Eval of Restraint Date: 02/13/20 Face to Face Eval of Restraint Time: 17:30
[2020-02-13] MEDS: IPRATROPIUM-ALBUTEROL 3 ML NEB INHALATION SCH (20:05)
[2020-02-13] MEDS: FORMOTEROL FUMARATE 20 MCG/2 ML NEBU INHALATION SCH (20:05)
[2020-02-13] MEDS: BUDESONIDE 1 MG/2 ML NEBU INHALATION SCH (20:05)
[2020-02-14 00:12] LABS: Glucose,Whole Blood 93 mg/dL (75-99)
[2020-02-14] MEDS: IPRATROPIUM-ALBUTEROL 3 ML NEB INHALATION SCH ×7 (00:24→21:25)
[2020-02-14] MEDS ORDERED: ACETAMINOPHEN TAB 325 MG TAB PO PRN (00:37)
[2020-02-14 04:26] LABS: MCH 32.4 pg (25.0-35.0); MCHC 33.2 g/dL (31.0-37.0); MCV 97.5 fL (80.0-100.0); Mean Platelet Volume 8.4; Platelet Count 163 k/uL (150-450); RDW 13.2 % (11.5-15.5); WBC 6.9 k/uL (3.8-10.6)
[2020-02-14 04:32] LABS: Albumin 2.3 g/dL (3.5-5.0); Calcium 7.9 mg/dL (8.4-10.2); Potassium 4.7 mmol/L (3.5-5.1); Total Bilirubin 0.7 mg/dL (0.2-1.3); Total Protein 4.8 g/dL (6.3-8.2)
[2020-02-14 05:25] LABS: ABG Base Excess -6.7 mmol/L; ABG HCO3 19 mmol/L (21-25); ABG Oxygen Saturation 98.9 % (94-97); ABG PCO2 36 mmHg (35-45); ABG PH 7.34 (7.35-7.45); ABG PO2 118 mmHg (83-108); ABG TCO2 20 mmol/L (19-24); Allen Test Performed? Yes
[2020-02-14 06:15] LABS: Band Neutrophils % 47 %; Lymphocytes # (M) 0.21 k/uL (1.0-4.8); Metamyelocytes # (M) 0.07 k/uL (0); Metamyelocytes % 1 %; Monocytes # (M) 0.07 k/uL (0-1.0); Neutrophils % (M) 48 %; Nucleated Red Blood Cells 0 /100 WBC (0-0); Total Cells Counted 100
--- NOTE | 2020-02-14 06:56 | P.PN ---
Subjective Progress Note Date: 02/14/20 64-year-old male patient came into the ED yesterday with generalized weakness and lightheadedness and he felt dizzy and he fell to the ground with no loss of consciousness. Denies having any chest pain. He did have some runny nose and no apparent exposure to coronavirus. He was combining of shortness of breath. No fever. No chills. He is pulse ox was 70% on room air with a respiratory rate of 26 and a heart rate of 122. Chest x-ray showed an extensive left lung pneumonia. CT angiogram was done and showed no evidence of any pulmonary embolism and there was a left upper lobe and left lower lobe airspace consolidation. Subsequently, the patient's respiratory status decompensated and the patient had to be intubated and placed on a mechanical ventilator. He was placed on assist control mode at the rate of 26 with a TV of 500 and FiO2 of 100% with a PEEP of 5. Subsequent blood gases showed some improvement in oxygenation. The patient was started on broad-spectrum antibiotics including a combination of Rocephin and Zithromax and vancomycin. The patient was resuscitated IV fluids. The patient is currently receiving normal saline at the rate of 130s cc an hour after receiving a total of 3 L of bolus in the emergency department. The white cell count was at 7.5 with a hemoglobin of 14.6. There was 23% bandemia on the initial CBC. The rest of the blood work and electrolytes are within normal limits. BUN was slightly elevated at 49. LFTs were within normal. CPK was 116. Troponin was 0.03. The COVID 19 PCR was negative.on today's evaluation, the patient's pH is at 7.34 with a pCO2 of 36 and pO2 of 119 and there is been some improvement in oxygenation. He remains on a PEEP of 5. Chest x-ray still showing dense consolidation of the entire left lung consistent with an airspace disease. tthe blood cultures showing gram- positive cocci and clusters and the patient will be covered with vancomycin. He is afebrile for now. Urine output is in order of 40 mL an hour.he is on no pressors for now. Objective - Vital Signs Vital signs: Vital Signs Temp 99.4 F 02/14/20 04:00 Pulse 105 H 02/14/20 05:00 Resp 26 H 02/14/20 05:00 BP 98/52 02/14/20 05:00 Pulse Ox 94 L 02/14/20 05:00 Intake & Output 02/13/20 02/13/20 02/14/20 06:59 18:59 06:59 Intake Total 4.720 692.839 Output Total 200 645 Balance -195.280 47.839 Weight 52.163 kg 58.7 kg Intake: IV 640 Sodium Chloride 640 Intake, IV Titration 4.720 52.839 Amount propofoL 1,000 mg In 4.720 51.170 Empty Bag 1 bag @ Titrate IV .Q0M ONE Rx#: [id number] propofoL 1,000 mg In 1.669 Empty Bag 1 bag @ Titrate IV .Q0M [facility] Rx#: [id number] Output: Urine 200 645 Other: Voiding Method Indwelling Catheter - Exam Gen. appearance the patient is sedated, comfortable active distress intubated on a mechanical ventilator. Head exam was generally normal. There was no scleral icterus or corneal arcus. Mucous membranes were moist. Neck was supple and without jugular venous distension, thyromegaly, or carotid bruits. Carotids were easily palpable bilaterally. There was no adenopathy. Orogastric and orotracheal tube are both in place. Lungs sounds are diminished in the patient's contacted the left lung base. No scattered wheezes. Cardiac exam revealed the PMI to be normally situated and sized. The rhythm was regular and no extrasystoles were noted during several minutes of auscultation. The first and second heart sounds were normal and physiologic splitting of the second heart sound was noted. There were no murmurs, rubs, clicks, or gallops. Abdominal exam revealed normal bowel sounds. The abdomen was soft, non-tender, and without masses, organomegaly, or appreciable enlargement of the abdominal aorta. Examination of the extremities revealed easily palpable radial, femoral and pedal pulses. There was no cyanosis, clubbing or edema. Examination of the skin revealed no evidence of significant rashes, suspicious appearing nevi or other concerning lesions. Neurologically the patient stated calm and comfortable. - Labs CBC & Chem 7: 02/14/20 03:38 02/14/20 03:38 Labs: Abnormal Lab Results - Last 24 Hours (Table) 02/13/20 02/13/20 02/13/20 Range/Units 13:10 13:10 13:54 RBC (4.30-5.90) m/uL Lymphocytes # (Manual) 0.68 L (1.0-4.8) k/uL Metamyelocytes # (Man) 0.68 H (0) k/uL Myelocytes # (Manual) 0.08 H (0) k/uL D-Dimer (<0.60) mg/L FEU ABG pH (7.35-7.45) ABG pCO2 (35-45) mmHg ABG pO2 (83-108) mmHg ABG HCO3 (21-25) mmol/L ABG Total CO2 (19-24) mmol/L ABG O2 Saturation (94-97) % Sodium 131 L (137-145) mmol/L Carbon Dioxide (22-30) mmol/L BUN 49 H (9-20) mg/dL Creatinine (0.66-1.25) mg/dL Glucose 105 H (74-99) mg/dL Plasma Lactic Acid Elio 4.6 H* (0.7-2.0) mmol/L Calcium (8.4-10.2) mg/dL AST (17-59) U/L C-Reactive Protein 381.5 H (<10.0) mg/L Total Protein 5.4 L (6.3-8.2) g/dL Albumin 2.7 L (3.5-5.0) g/dL Urine Protein (Negative) Urine Blood (Negative) Urine WBC (0-5) /hpf Hyaline Casts (0-2) /lpf Urine Mucus (None) /hpf Urine Sperm (None) /hpf 02/13/20 02/13/20 02/13/20 Range/Units 13:58 15:23 15:55 RBC (4.30-5.90) m/uL Lymphocytes # (Manual) (1.0-4.8) k/uL Metamyelocytes # (Man) (0) k/uL Myelocytes # (Manual) (0) k/uL D-Dimer 11.14 H (<0.60) mg/L FEU ABG pH 7.24 L (7.35-7.45) ABG pCO2 55 H (35-45) mmHg ABG pO2 77 L (83-108) mmHg ABG HCO3 (21-25) mmol/L ABG Total CO2 26 H (19-24) mmol/L ABG O2 Saturation 93.5 L (94-97) % Sodium (137-145) mmol/L Carbon Dioxide (22-30) mmol/L BUN (9-20) mg/dL Creatinine (0.66-1.25) mg/dL Glucose (74-99) mg/dL Plasma Lactic Acid Elio (0.7-2.0) mmol/L Calcium (8.4-10.2) mg/dL AST (17-59) U/L C-Reactive Protein (<10.0) mg/L Total Protein (6.3-8.2) g/dL Albumin (3.5-5.0) g/dL Urine Protein 1+ H (Negative) Urine Blood Trace H (Negative) Urine WBC 8 H (0-5) /hpf Hyaline Casts 15 H (0-2) /lpf Urine Mucus Occasional H (None) /hpf Urine Sperm Moderate H (None) /hpf 02/13/20 02/14/20 02/14/20 Range/Units 17:32 03:38 03:38 RBC 4.00 L (4.30-5.90) m/uL Lymphocytes # (Manual) 0.21 L (1.0-4.8) k/uL Metamyelocytes # (Man) 0.07 H (0) k/uL Myelocytes # (Manual) (0) k/uL D-Dimer (<0.60) mg/L FEU ABG pH 7.22 L (7.35-7.45) ABG pCO2 53 H (35-45) mmHg ABG pO2 73 L (83-108) mmHg ABG HCO3 (21-25) mmol/L ABG Total CO2 (19-24) mmol/L ABG O2 Saturation 91.7 L (94-97) % Sodium 131 L (137-145) mmol/L Carbon Dioxide 20 L (22-30) mmol/L BUN 60 H (9-20) mg/dL Creatinine 1.43 H (0.66-1.25) mg/dL Glucose (74-99) mg/dL Plasma Lactic Acid Elio (0.7-2.0) mmol/L Calcium 7.9 L (8.4-10.2) mg/dL AST 78 H (17-59) U/L C-Reactive Protein (<10.0) mg/L Total Protein 4.8 L (6.3-8.2) g/dL Albumin 2.3 L (3.5-5.0) g/dL Urine Protein (Negative) Urine Blood (Negative) Urine WBC (0-5) /hpf Hyaline Casts (0-2) /lpf Urine Mucus (None) /hpf Urine Sperm (None) /hpf 02/14/20 Range/Units 05:24 RBC (4.30-5.90) m/uL Lymphocytes # (Manual) (1.0-4.8) k/uL Metamyelocytes # (Man) (0) k/uL Myelocytes # (Manual) (0) k/uL D-Dimer (<0.60) mg/L FEU ABG pH 7.34 L (7.35-7.45) ABG pCO2 (35-45) mmHg ABG pO2 118 H (83-108) mmHg ABG HCO3 19 L (21-25) mmol/L ABG Total CO2 (19-24) mmol/L ABG O2 Saturation 98.9 H (94-97) % Sodium (137-145) mmol/L Carbon Dioxide (22-30) mmol/L BUN (9-20) mg/dL Creatinine (0.66-1.25) mg/dL Glucose (74-99) mg/dL Plasma Lactic Acid Elio (0.7-2.0) mmol/L Calcium (8.4-10.2) mg/dL AST (17-59) U/L C-Reactive Protein (<10.0) mg/L Total Protein (6.3-8.2) g/dL Albumin (3.5-5.0) g/dL Urine Protein (Negative) Urine Blood (Negative) Urine WBC (0-5) /hpf Hyaline Casts (0-2) /lpf Urine Mucus (None) /hpf Urine Sperm (None) /hpf Microbiology - Last 24 Hours (Table) 02/13/20 13:10 Blood Culture - Final Blood 02/13/20 18:02 Gram Stain - Preliminary Sputum Sputum Culture - Preliminary Assessment and Plan Plan: 1 acute pneumonia involving the left lung, likely bacterial. The patterson virus, COVID 19 evaluation was negative. The patient is currently on a combination of Rocephin and Zithromax and vancomycin.the patient has gram-positive cocci in the blood. Awaiting final cultures. The patient is currently on a combination of Rocephin and Zithromax and vancomycin. There is extensive left lung consolidation. 2 acute hypoxic respiratory failure requiring the patient mechanical ventilation. 3 COPD 4 hypertension 5 hyperlipidemia 6 generalized weakness secondary to above 7 presyncope secondary to above. Plan Continue current antibiotic combination of Rocephin and Zithromax and van comycin,, pending further blood culture results Sputum Gram stain and culture increase the PEEP up to 10 and drop the FiO2 down to 80% and gradually wean it down to maintain a saturation above 90%. Blood culture Check pro calcitonin level check Legionella urine antigen DuoNeb nebulized treatments around the clock Continue sedation with propofol, currently running at 35 g per KG per minute Enteral feeding for nutritional support and dietary consultation will be obtained Continue IV fluids with normal saline at the rate of 1 30 mL an hour Daily chest x-ray and blood gases Lovenoxorder milligrams subcu for DVT prophylaxis IV Protonix 40 mg every 24 hours May need bronchoscopy and the bronchioloalveolar lavage of the cultures come back negative We'll insert lines at a later stage Condition is critical and will continue to follow. This evaluation was done and more than 30 minutes and this is a critically care evaluation. Time with Patient: Greater than 30
[2020-02-14] MEDS ORDERED: VANCOMYCIN 1,000 MG in SODIUM CHLORIDE 0.9% 250 ML IVPB SCH (07:00)
[2020-02-14] MEDS: FORMOTEROL FUMARATE 20 MCG/2 ML NEBU INHALATION SCH ×2 (08:16→21:25)
[2020-02-14] MEDS: BUDESONIDE 1 MG/2 ML NEBU INHALATION SCH ×2 (08:16→21:25)
[2020-02-14] MEDS: PANTOPRAZOLE 40 MG/10 ML VIAL IVP SCH (09:03)
[2020-02-14] MEDS: CHLORHEXIDINE GLUCONATE 15 ML CUP MUCOUS MEM SCH ×2 (09:03→20:18)
[2020-02-14] MEDS: AZITHROMYCIN 500 MG in SODIUM CHLORIDE 0.9% 250 ML IVPB SCH (10:26)
[2020-02-14] MEDS: ENOXAPARIN 40 MG/0.4 ML SYRINGE SQ SCH (10:26)
--- NOTE | 2020-02-14 10:35 | XR ---
EXAMINATION TYPE: XR chest 1V portable DATE OF EXAM: 02/14/2020 COMPARISON: 02/13/2020 HISTORY: Shortness of breath TECHNIQUE: Single frontal view of the chest is obtained. FINDINGS: ET and NG tube stable. There is diffuse left-sided airspace disease. Hyperinflation sugges ts COPD with left apical pleural thickening. Tiny left pleural effusion noted. IMPRESSION: COPD with stable diffuse left-sided airspace disease correlate for pneumonia. Underlying neoplasm not excluded.
[2020-02-14 10:43] VITALS: BMI 18.6
[2020-02-14] MEDS ORDERED: SODIUM CHLORIDE 0.9% 1,000 ML IV ONE ×4 (11:02→22:21)
[2020-02-14 12:39] LABS: Glucose,Whole Blood 107 mg/dL (75-99)
[2020-02-14] MEDS ORDERED: DEXTROSE 5% IN WATER 100 ML with AMIODARONE 150 MG IV ONE ×2 (14:00→19:15)
[2020-02-14] MEDS ORDERED: AMIODARONE 360 MG in DEXTROSE 5% IN WATER 200 ML IV ONE ×2 (14:15)
--- NOTE | 2020-02-14 16:42 | P.HPIM ---
History of Present Illness H&P Date: 02/14/20 Chief Complaint: Weakness and Dizziness Mr. Villanueva is a 64-year-old male with a past medical history of COPD, hypertension, hyperlipidemia, depression brought into the hospital by EMS secondary to generalized weakness. Patient felt lightheaded and dizzy and fell to the ground but there was no loss of consciousness and so family members called the EMS and he was brought to the ER. In the ER patient was complaining of difficulty in breathing and he was saturating at 70% on room air. So a chest x-ray was obtained immediately showing extensive left lung pneumonia. So CT of the chest was done which was negative for PE but extensive left upper lobe and left lower lobe base consolidation. Patient's respiratory status worsened and so eventually the patient was intubated in the emergency department and transferred to the ICU. Patient has been started on antibiotics in the form of ceftriaxone and Zithromax and vancomycin was also given IV fluid resuscitation. Patient had copious 19 PCR that was negative. This morning patient was seen and examined in the ICU. He is currently on a ventilator and sedated. The patient's blood cultures was positive for gram-positive cocci in clusters, he is currently on vancomycin. Patient also had decreased urinary output. But his blood pressure has been maintained on the lower side with a map of 66. Review of Systems ROS unobtainable: due to endotracheal tube Past Medical History Past Medical History: COPD, Hyperlipidemia, Hypertension History of Any Multi-Drug Resistant Organisms: None Reported Past Surgical History: Orthopedic Surgery Past Psychological History: Depression Smoking Status: Current every day smoker Past Alcohol Use History: None Reported Past Drug Use History: None Reported Medications and Allergies Home Medications Medication Instructions Recorded Confirmed Type Albuterol Nebulized [Ventolin 2.5 mg INHALATION RT-Q6H PRN 08/25/15 02/13/20 History Nebulized] Fluticasone Nasal [place] [Flonase 1 spray EA NOSTRIL DAILY 08/25/15 02/13/20 History Nasal [place]] Simvastatin [Zocor] 40 mg PO HS 08/25/15 02/13/20 History Fluticasone Propionate [Flovent 1 puff INHALATION RT-DAILY 02/13/20 02/13/20 History Hfa 110 mcg] Ipratropium/Albuter 20-100Mcg 1 puff INHALATION RT-QID 02/13/20 02/13/20 History [Combivent Respimat 20-100Mcg Inhaler] Metoprolol Succinate [Toprol XL] 50 mg PO DAILY 02/13/20 02/13/20 History Omeprazole 20 mg PO DAILY 02/13/20 02/13/20 History Oxybutynin ER [Ditropan Xl] 15 mg PO DAILY 02/13/20 02/13/20 History Allergies Allergy/AdvReac Type Severity Reaction Status Date / Time codeine Allergy Unknown Verified 02/13/20 14:25 Iodine and Iodide Containing Allergy Rash/Hives Verified 02/13/20 14:25 Produc Penicillins Allergy Swelling,it Verified 02/13/20 14:25 le shellfish derived Allergy Rash/Hives Verified 02/13/20 14:25 Physical Exam Vitals: Vital Signs Temp Pulse Resp BP Pulse Ox 02/14/20 12:09 106 H 02/14/20 11:59 109 H 02/14/20 08:37 104 H 02/14/20 08:28 105 H 02/14/20 08:17 106 H 02/14/20 05:00 105 H 26 H 98/52 94 L 02/14/20 04:11 111 H 02/14/20 04:00 99.4 F 102 H 26 H 96/52 95 02/14/20 03:58 105 H 02/14/20 03:00 105 H 28 H 102/50 94 L 02/14/20 02:00 98.4 F 101 H 28 H 106/57 91 L 02/14/20 01:30 103 H 29 H 94/50 91 L 02/14/20 01:00 101.7 F H 102 H 26 H 94/50 90 L 02/14/20 00:38 105 H 02/14/20 00:30 105 H 26 H 94/49 91 L 02/14/20 00:26 104 H 02/14/20 00:00 26 H 02/13/20 22:00 110 H 24 107/57 98 02/13/20 21:15 98 26 H 103/56 100 02/13/20 21:00 97 26 H 91/56 100 02/13/20 20:45 94 26 H 89/54 100 02/13/20 20:30 93 26 H 86/52 100 02/13/20 20:20 92 26 H 02/13/20 20:05 96 26 H 02/13/20 19:53 105 H 28 H 81/47 96 02/13/20 18:30 113 H 26 H 101/61 93 L 02/13/20 18:10 116 H 26 H 109/68 94 L 02/13/20 18:00 116 H 26 H 109/58 93 L 02/13/20 17:52 117 H 26 H 120/61 93 L 02/13/20 16:52 117 H 24 114/89 99 02/13/20 16:40 6 L 36 L 02/13/20 15:00 26 H 90 L Intake and Output 02/13/20 02/14/20 02/14/20 22:59 06:59 14:59 Intake Total 30.540 667.019 120 Output Total 450 395 180 Balance -419.460 272.019 -60 Intake: IV 640 120 Sodium Chloride 640 120 Intake, IV Titration 30.540 27.019 Amount propofoL 1,000 mg In 30.540 25.35 Empty Bag 1 bag @ Titrate IV .Q0M [facility] Rx#: [id number] propofoL 1,000 mg In 1.669 Empty Bag 1 bag @ Titrate IV .Q0M COUNTS INCLUDE 234 BEDS AT THE [facility] Rx#: [id number] Output: Urine 450 395 180 Other: Voiding Method Indwelling Catheter Weight 58.7 kg 58.7 kg GEN. APPEARANCE: Intubated and mechanically ventilated and sedated, chronically ill-appearing HEAD EXAM: atraumatic, normocephalic, normal inspection EYE EXAM: No scleral icterus. Pupils are reflex present. ENT EXAM: O G-tube and ET tube in place NECK EXAM: normal inspection. No JVD. RESPIRATORY EXAM: Diminished breath sounds on the left lung CARDIOVASCULAR EXAM: regular rate, normal rhythm, normal heart sounds GI/ABDOMINAL EXAM: soft, normal bowel sounds. No guarding. No tenderness. EXTREMITIES EXAM: No cyanosis or clubbing. No edema. NEUROLOGICAL EXAM: Patient is sedated SKIN EXAM: no rash Results CBC & Chem 7: 02/14/20 03:38 02/14/20 03:38 Labs: Abnormal Lab Results - Last 24 Hours (Table) 02/13/20 02/13/20 02/13/20 Range/Units 13:54 13:58 15:23 RBC (4.30-5.90) m/uL Lymphocytes # (Manual) (1.0-4.8) k/uL Metamyelocytes # (Man) (0) k/uL D-Dimer 11.14 H (<0.60) mg/L FEU ABG pH (7.35-7.45) ABG pCO2 (35-45) mmHg ABG pO2 (83-108) mmHg ABG HCO3 (21-25) mmol/L ABG Total CO2 (19-24) mmol/L ABG O2 Saturation (94-97) % Sodium 131 L (137-145) mmol/L Carbon Dioxide (22-30) mmol/L BUN 49 H (9-20) mg/dL Creatinine (0.66-1.25) mg/dL Glucose 105 H (74-99) mg/dL POC Glucose (mg/dL) (75-99) mg/dL Calcium (8.4-10.2) mg/dL AST (17-59) U/L C-Reactive Protein 381.5 H (<10.0) mg/L Total Protein 5.4 L (6.3-8.2) g/dL Albumin 2.7 L (3.5-5.0) g/dL Procalcitonin (0.02-0.09) ng/mL Urine Protein 1+ H (Negative) Urine Blood Trace H (Negative) Urine WBC 8 H (0-5) /hpf Hyaline Casts 15 H (0-2) /lpf Urine Mucus Occasional H (None) /hpf Urine Sperm Moderate H (None) /hpf 02/13/20 02/13/20 02/14/20 Range/Units 15:55 17:32 03:38 RBC 4.00 L (4.30-5.90) m/uL Lymphocytes # (Manual) 0.21 L (1.0-4.8) k/uL Metamyelocytes # (Man) 0.07 H (0) k/uL D-Dimer (<0.60) mg/L FEU ABG pH 7.24 L 7.22 L (7.35-7.45) ABG pCO2 55 H 53 H (35-45) mmHg ABG pO2 77 L 73 L (83-108) mmHg ABG HCO3 (21-25) mmol/L ABG Total CO2 26 H (19-24) mmol/L ABG O2 Saturation 93.5 L 91.7 L (94-97) % Sodium (137-145) mmol/L Carbon Dioxide (22-30) mmol/L BUN (9-20) mg/dL Creatinine (0.66-1.25) mg/dL Glucose (74-99) mg/dL POC Glucose (mg/dL) (75-99) mg/dL Calcium (8.4-10.2) mg/dL AST (17-59) U/L C-Reactive Protein (<10.0) mg/L Total Protein (6.3-8.2) g/dL Albumin (3.5-5.0) g/dL Procalcitonin (0.02-0.09) ng/mL Urine Protein (Negative) Urine Blood (Negative) Urine WBC (0-5) /hpf Hyaline Casts (0-2) /lpf Urine Mucus (None) /hpf Urine Sperm (None) /hpf 02/14/20 02/14/20 02/14/20 Range/Units 03:38 03:38 05:24 RBC (4.30-5.90) m/uL Lymphocytes # (Manual) (1.0-4.8) k/uL Metamyelocytes # (Man) (0) k/uL D-Dimer (<0.60) mg/L FEU ABG pH 7.34 L (7.35-7.45) ABG pCO2 (35-45) mmHg ABG pO2 118 H (83-108) mmHg ABG HCO3 19 L (21-25) mmol/L ABG Total CO2 (19-24) mmol/L ABG O2 Saturation 98.9 H (94-97) % Sodium 131 L (137-145) mmol/L Carbon Dioxide 20 L (22-30) mmol/L BUN 60 H (9-20) mg/dL Creatinine 1.43 H (0.66-1.25) mg/dL Glucose (74-99) mg/dL POC Glucose (mg/dL) (75-99) mg/dL Calcium 7.9 L (8.4-10.2) mg/dL AST 78 H (17-59) U/L C-Reactive Protein (<10.0) mg/L Total Protein 4.8 L (6.3-8.2) g/dL Albumin 2.3 L (3.5-5.0) g/dL Procalcitonin 78.92 H (0.02-0.09) ng/mL Urine Protein (Negative) Urine Blood (Negative) Urine WBC (0-5) /hpf Hyaline Casts (0-2) /lpf Urine Mucus (None) /hpf Urine Sperm (None) /hpf 02/14/20 Range/Units 12:38 RBC (4.30-5.90) m/uL Lymphocytes # (Manual) (1.0-4.8) k/uL Metamyelocytes # (Man) (0) k/uL D-Dimer (<0.60) mg/L FEU ABG pH (7.35-7.45) ABG pCO2 (35-45) mmHg ABG pO2 (83-108) mmHg ABG HCO3 (21-25) mmol/L ABG Total CO2 (19-24) mmol/L ABG O2 Saturation (94-97) % Sodium (137-145) mmol/L Carbon Dioxide (22-30) mmol/L BUN (9-20) mg/dL Creatinine (0.66-1.25) mg/dL Glucose (74-99) mg/dL POC Glucose (mg/dL) 107 H (75-99) mg/dL Calcium (8.4-10.2) mg/dL AST (17-59) U/L C-Reactive Protein (<10.0) mg/L Total Protein (6.3-8.2) g/dL Albumin (3.5-5.0) g/dL Procalcitonin (0.02-0.09) ng/mL Urine Protein (Negative) Urine Blood (Negative) Urine WBC (0-5) /hpf Hyaline Casts (0-2) /lpf Urine Mucus (None) /hpf Urine Sperm (None) /hpf Microbiology - Last 24 Hours (Table) 02/13/20 18:02 Gram Stain - Preliminary Sputum Sputum Culture - Preliminary Presumptive Staph aureus 02/13/20 13:10 Blood Culture Gram Stain - Preliminary Blood Blood Culture - Preliminary Staphylococcus aureus 02/13/20 13:10 Blood Culture - Final Blood Thrombosis Risk Factor Assmnt - Choose All That Apply Each Risk Factor Represents 2 Points: Age 61-74 years Thrombosis Risk Factor Assessment Total Risk Factor Score: 2 Thrombosis Risk Factor Assessment Level: Low Risk Assessment and Plan Assessment: ASSESSMENT Acute hypoxic respiratory failure secondary to left lung pneumonia Left lung pneumonia COPD Hypertension Hyperlipidemia Mild protein calorie malnutrition PLAN: Patient's blood cultures were positive for gram-negative back, he is currently on vancomycin. He is also on ceftriaxone and Zithromax for pneumonia. Ventilator management as per pulmonary team. Continue with breathing treatments. Continue with IV fluids as the patient has decreased urine output. GI DVT prophylaxis. Further recommendations to follow depending on the progress of the patient. Overall prognosis is guarded.
[2020-02-14 17:57] LABS: Glucose,Whole Blood 112 mg/dL (75-99)
--- NOTE | 2020-02-14 18:20 | XR ---
EXAMINATION TYPE: XR chest 1V portable DATE OF EXAM: 02/14/2020 COMPARISON: Today HISTORY: Check line placement TECHNIQUE: FINDINGS: There is left jugular catheter with tip in the superior vena cava. There is endotracheal tu be with the tip 7 cm from the bandar. There is nasogastric tube in the stomach. There is diffuse airs pace consolidation in the left lung. Right lung is fairly clear. There is no heart failure. Heart siz e is normal. There is probably COPD. IMPRESSION: Extensive consolidation in the left lung unchanged compared to exam this morning.
--- NOTE | 2020-02-14 19:11 | P.PCN ---
Date of Procedure: 02/14/20 Preoperative Diagnosis: Acute left lung pneumonia, respiratory failure Postoperative Diagnosis: Acute left lung pneumonia, respiratory failure Procedure(s) Performed: Insertion of a central line and insertion of an arterial line Anesthesia: local Surgeon: Greta Naqvi Estimated Blood Loss (ml): 0 Pathology: none sent Condition: critical Disposition: ICU Operative Findings: Indication: Hemodynamic monitoring/Intravenous access. A time-out was completed verifying correct patient, procedure, site, positioning, and implant(s) or special equipment if applicable. The patient was placed in a dependent position appropriate for central line placement based on the vein to be cannulated. The patient's neck was prepped and draped in sterile fashion. 1% Lidocaine was used to anesthetize the surrounding skin area. A triple lumen 9F Cordis catheter was introduced into the left internal jugular vein using Seldinger technique. The catheter was threaded smoothly over the guide wire and appropriate blood return was obtained. Each lumen of the catheter was evacuated of air and flushed with sterile saline. The catheter was then sutured in place to the skin and a sterile dressing applied. Perfusion to the extremity distal to the point of catheter insertion was checked and found to be adequate. The patient tolerated the procedure well and there were no complications. Indication: Hemodynamic monitoring. A time-out was completed verifying correct patient, procedure, site, positioning, and implant(s) or special equipment if applicable. Allens test was performed to ensure adequate perfusion. The patient's right wrist was prepped and draped in sterile fashion. 1% Lidocaine was used to anesthetize the area. An 18G Arrow arterial line was introduced into the right radial artery. The catheter was threaded over the guide wire and the needle was removed with appropriate pulsatile blood return. Blood loss was minimal. The catheter was then sutured in place to the skin and a sterile dressing applied. Perfusion to the extremity distal to the point of catheter insertion was checked and found to be adequate. The patient tolerated the procedure well and there were no complications.
[2020-02-14] MEDS: AMIODARONE 300 MG in DEXTROSE 5% IN WATER 250 ML IV SCH ×2 (20:29)
[2020-02-14] MEDS: NOREPINEPHRINE 8 MG in SODIUM CHLORIDE 0.9% 250 ML IV SCH (22:58)
[2020-02-14 23:30] LABS: Glucose,Whole Blood 118 mg/dL (75-99)
[2020-02-15] MEDS: IPRATROPIUM-ALBUTEROL 3 ML NEB INHALATION SCH ×7 (00:41→23:54)
[2020-02-15 04:28] LABS: Glucose,Whole Blood 117 mg/dL (75-99)
[2020-02-15 04:37] LABS: HCT 43.4 % (39.0-53.0); HGB 13.6 gm/dL (13.0-17.5); Hypochromasia Slight; MCH 31.2 pg (25.0-35.0); MCHC 31.2 g/dL (31.0-37.0); MCV 99.9 fL (80.0-100.0); Mean Platelet Volume 8.5; Platelet Count 258 k/uL (150-450); RBC 4.34 m/uL (4.30-5.90); RDW 13.9 % (11.5-15.5)
[2020-02-15 05:02] LABS: Albumin 2.2 g/dL (3.5-5.0); Calcium 7.5 mg/dL (8.4-10.2); Potassium 5.5 mmol/L (3.5-5.1); Total Bilirubin 0.8 mg/dL (0.2-1.3); Total Protein 4.8 g/dL (6.3-8.2)
[2020-02-15 05:19] LABS: Band Neutrophils % 36 %; Monocytes # (M) 0.59 k/uL (0-1.0); Myelocytes % 2 %; Neutrophils % (M) 57 %; Nucleated Red Blood Cells 1 /100 WBC (0-0); Total Cells Counted 200; WBC 19.8 k/uL (3.8-10.6)
[2020-02-15 05:29] LABS: ABG Base Excess -14.3 mmol/L; ABG HCO3 15 mmol/L (21-25); ABG Oxygen Saturation 93.4 % (94-97); ABG PCO2 48 mmHg (35-45); ABG PO2 78 mmHg (83-108); ABG TCO2 17 mmol/L (19-24); Allen Test Performed? Yes
[2020-02-15 05:36] LABS: ABG PH 7.11 (7.35-7.45)
[2020-02-15] MEDS ORDERED: SODIUM BICARB 8.4% 50 ML SYR (1 MEQ/ML) IV STA ×2 (05:43→19:02)
[2020-02-15] MEDS ORDERED: VANCOMYCIN 1,000 MG in SODIUM CHLORIDE 0.9% 250 ML IVPB SCH (06:00)
[2020-02-15 07:15] LABS: ABG Base Excess -11.3 mmol/L; ABG HCO3 17 mmol/L (21-25); ABG Oxygen Saturation 90.1 % (94-97); ABG PCO2 44 mmHg (35-45); ABG PO2 62 mmHg (83-108); ABG TCO2 18 mmol/L (19-24)
[2020-02-15 07:17] LABS: Allen Test Performed? no
--- NOTE | 2020-02-15 07:22 | P.PN ---
Subjective Progress Note Date: 02/15/20 64-year-old male patient came into the ED yesterday with generalized weakness and lightheadedness and he felt dizzy and he fell to the ground with no loss of consciousness. Denies having any chest pain. He did have some runny nose and no apparent exposure to coronavirus. He was combining of shortness of breath. No fever. No chills. He is pulse ox was 70% on room air with a respiratory rate of 26 and a heart rate of 122. Chest x-ray showed an extensive left lung pneumonia. CT angiogram was done and showed no evidence of any pulmonary embolism and there was a left upper lobe and left lower lobe airspace consolidation. Subsequently, the patient's respiratory status decompensated and the patient had to be intubated and placed on a mechanical ventilator. He was placed on assist control mode at the rate of 26 with a TV of 500 and FiO2 of 100% with a PEEP of 5. Subsequent blood gases showed some improvement in oxygenation. The patient was started on broad-spectrum antibiotics including a combination of Rocephin and Zithromax and vancomycin. The patient was resuscitated IV fluids. The patient is currently receiving normal saline at the rate of 130s cc an hour after receiving a total of 3 L of bolus in the emergency department. The white cell count was at 7.5 with a hemoglobin of 14.6. There was 23% bandemia on the initial CBC. The rest of the blood work and electrolytes are within normal limits. BUN was slightly elevated at 49. LFTs were within normal. CPK was 116. Troponin was 0.03. The COVID 19 PCR was negative.on today's evaluation, the patient's pH is at 7.34 with a pCO2 of 36 and pO2 of 119 and there is been some improvement in oxygenation. He remains on a PEEP of 5. Chest x-ray still showing dense consolidation of the entire left lung consistent with an airspace disease. tthe blood cultures showing gram- positive cocci and clusters and the patient will be covered with vancomycin. He is afebrile for now. Urine output is in order of 40 mL an hour.he is on no pressors for now. on 02/15/2020, the patient is being seen for a follow-up. The patient remains intubated on a mechanical ventilator. He does have an extensive left lung pneumonia and the sputum cultures positive for staph aureus in the blood cultures presumptively MRSA. The patient remains on a combination of vancomycin, Zithromax and Rocephin. Note that the patient has also developed an acute kidney injury. On today's evaluation creatinine is up to 2.4. The patient overnight received 3 L of normal saline boluses as the patient was having issues with hypotension low urine output. Ultimately he was started on norepinephrine infusion which is currently running at 12 mcg/min. The patient was also having runs of atrial fibrillation with rapid ventricular response. He received several boluses of amiodarone and currently is on a maintenance of 0.5 mg/m. His current rhythm is sinus. He remains on a mechanical ventilator. Necessary ventilator changes were done. Based on the morning blood gases that showed a pH of 7.1 with a pCO2 of 48 and pO2 of 78, I switch this patient to an assist-control mode at the rate of 32 with a tidal volume of 500 and FiO2 of 80% with a PEEP of 10.he is obviously metabolic acidosis. Lactic acid level was at 3.2 and the patient had a non-anion gap metabolic acidosis with a serum bicarb of 17 and the patient was already given a total of 1100 mEq of sodium bicarbonate. He will be also started on a bicarb infusion at the rate of 100 mL an hour. He is sedated with propofol which is running at 30 g. He is also on enteral feeding. His white cell count is up to 19.8. Objective - Vital Signs Vital signs: Vital Signs Temp 98.4 F 02/15/20 04:00 Pulse 112 H 02/15/20 07:00 Resp 32 H 02/15/20 07:00 BP 112/62 02/15/20 07:00 Pulse Ox 89 L 02/15/20 07:00 Intake & Output 02/14/20 02/15/20 02/15/20 18:59 06:59 18:59 Intake Total 1340 3566.759 20 Output Total 295 235 15 Balance 1045 3331.759 5 Weight 58.7 kg 63.3 kg Intake: IV 240 3180 20 Sodium Chloride 240 3180 20 Intake, IV Titration 1100 166.759 Amount Norepinephrine 8 mg In 73.719 Sodium Chloride 0.9% 250 ml @ 0.05 MCG/KG/MIN 5. 679 mls/hr IV .Q24H [facility] Rx#:[id number] Sodium Chloride 0.9% 1, 1000 000 ml @ 999 mls/hr IV . Q1H1M [facility] Rx#:[id number] propofoL 1,000 mg In 100 93.04 Empty Bag 1 bag @ Titrate IV .Q0M [facility] Rx#: [id number] Tube Feeding 160 Other 60 Output: Urine 295 235 15 Other: Voiding Method Indwelling Catheter Indwelling Catheter ABP, PAP, CO, CI - Last Documented Arterial Blood Pressure 81/49 - Exam Gen. appearance the patient is sedated, comfortable active distress intubated on a mechanical ventilator. Head exam was generally normal. There was no scleral icterus or corneal arcus. Mucous membranes were moist. Neck was supple and without jugular venous distension, thyromegaly, or carotid bruits. Carotids were easily palpable bilaterally. There was no adenopathy. Orogastric and orotracheal tube are both in place. Lungs sounds are diminished in the patient's contacted the left lung base. No scattered wheezes. Cardiac exam revealed the PMI to be normally situated and sized. The rhythm was regular and no extrasystoles were noted during several minutes of auscultation. The first and second heart sounds were normal and physiologic splitting of the second heart sound was noted. There were no murmurs, rubs, clicks, or gallops. Abdominal exam revealed normal bowel sounds. The abdomen was soft, non-tender, and without masses, organomegaly, or appreciable enlargement of the abdominal aorta. Examination of the extremities revealed easily palpable radial, femoral and pedal pulses. There was no cyanosis, clubbing or edema. Examination of the skin revealed no evidence of significant rashes, suspicious appearing nevi or other concerning lesions. Neurologically the patient stated calm and comfortable. - Labs CBC & Chem 7: 02/15/20 04:25 02/15/20 04:25 Labs: Abnormal Lab Results - Last 24 Hours (Table) 02/14/20 02/14/20 02/14/20 Range/Units 03:38 12:38 17:55 WBC (3.8-10.6) k/uL Neutrophils # (Manual) (1.3-7.7) k/uL Lymphocytes # (Manual) (1.0-4.8) k/uL Myelocytes # (Manual) (0) k/uL Nucleated RBCs (0-0) /100 WBC ABG pH (7.35-7.45) ABG pCO2 (35-45) mmHg ABG pO2 (83-108) mmHg ABG HCO3 (21-25) mmol/L ABG Total CO2 (19-24) mmol/L ABG O2 Saturation (94-97) % ABG Lactic Acid (0.5-1.6) mmol/L Sodium (137-145) mmol/L Potassium (3.5-5.1) mmol/L Chloride (98-107) mmol/L Carbon Dioxide (22-30) mmol/L BUN (9-20) mg/dL Creatinine (0.66-1.25) mg/dL Glucose (74-99) mg/dL POC Glucose (mg/dL) 107 H 112 H (75-99) mg/dL Calcium (8.4-10.2) mg/dL AST (17-59) U/L ALT (4-49) U/L Total Protein (6.3-8.2) g/dL Albumin (3.5-5.0) g/dL Procalcitonin 78.92 H (0.02-0.09) ng/mL 02/14/20 02/15/20 02/15/20 Range/Units 23:28 04:25 04:25 WBC 19.8 H (3.8-10.6) k/uL Neutrophils # (Manual) 18.40 H (1.3-7.7) k/uL Lymphocytes # (Manual) 0.40 L (1.0-4.8) k/uL Myelocytes # (Manual) 0.40 H (0) k/uL Nucleated RBCs 1 H (0-0) /100 WBC ABG pH (7.35-7.45) ABG pCO2 (35-45) mmHg ABG pO2 (83-108) mmHg ABG HCO3 (21-25) mmol/L ABG Total CO2 (19-24) mmol/L ABG O2 Saturation (94-97) % ABG Lactic Acid (0.5-1.6) mmol/L Sodium 133 L (137-145) mmol/L Potassium 5.5 H (3.5-5.1) mmol/L Chloride 108 H (98-107) mmol/L Carbon Dioxide 17 L (22-30) mmol/L BUN 78 H (9-20) mg/dL Creatinine 2.49 H (0.66-1.25) mg/dL Glucose 122 H (74-99) mg/dL POC Glucose (mg/dL) 118 H (75-99) mg/dL Calcium 7.5 L (8.4-10.2) mg/dL AST 402 H (17-59) U/L ALT 92 H (4-49) U/L Total Protein 4.8 L (6.3-8.2) g/dL Albumin 2.2 L (3.5-5.0) g/dL Procalcitonin (0.02-0.09) ng/mL 02/15/20 02/15/20 02/15/20 Range/Units 04:26 05:24 06:00 WBC (3.8-10.6) k/uL Neutrophils # (Manual) (1.3-7.7) k/uL Lymphocytes # (Manual) (1.0-4.8) k/uL Myelocytes # (Manual) (0) k/uL Nucleated RBCs (0-0) /100 WBC ABG pH 7.11 L* (7.35-7.45) ABG pCO2 48 H (35-45) mmHg ABG pO2 78 L (83-108) mmHg ABG HCO3 15 L (21-25) mmol/L ABG Total CO2 17 L (19-24) mmol/L ABG O2 Saturation 93.4 L (94-97) % ABG Lactic Acid 3.2 H* (0.5-1.6) mmol/L Sodium (137-145) mmol/L Potassium (3.5-5.1) mmol/L Chloride (98-107) mmol/L Carbon Dioxide (22-30) mmol/L BUN (9-20) mg/dL Creatinine (0.66-1.25) mg/dL Glucose (74-99) mg/dL POC Glucose (mg/dL) 117 H (75-99) mg/dL Calcium (8.4-10.2) mg/dL AST (17-59) U/L ALT (4-49) U/L Total Protein (6.3-8.2) g/dL Albumin (3.5-5.0) g/dL Procalcitonin (0.02-0.09) ng/mL Microbiology - Last 24 Hours (Table) 02/13/20 13:10 Blood Culture Gram Stain - Preliminary Blood Blood Culture - Preliminary Presumptive MRSA 02/13/20 18:02 Gram Stain - Preliminary Sputum Sputum Culture - Preliminary Presumptive Staph aureus 02/13/20 13:10 Blood Culture - Final Blood Assessment and Plan Plan: 1 acute pneumonia involving the left lung, likely bacterial. The patterson virus, COVID 19 evaluation was negative. The patient is currently on a combination of Rocephin and Zithromax and vancomycin.the patient has gram-positive cocci in the blood. the blood cultures positive for MRSA and the sputum was positive for s taph aureus. Highly consider a staphylococcal left lung pneumonia. The patient is on vancomycin. 2 acute hypoxic respiratory failure requiring the patient mechanical ventilation. 3 COPD 4 septic shock secondary to above and the patient has been resuscitated aggressively with IV fluids. We'll balance is positive. Overnight he received an additional 3 L and currently he is on norepinephrine infusion. 5 acute leukocytosis secondary to above 6 acute kidney injury in the creatinine is up to 2.4 7 non-anion gap metabolic acidosis. 8 history of hypertension 9 history of hyperlipidemia Plan Continue current antibiotic combination of Rocephin and Zithromax and stop the vancomycin and put the patient on Zyvox 600 mg IV every 12 hours.we will alsostop the Rocephin and switch her to 2 mg of cefepime every 12 hours. Sputum Gram stain and cultureis consistent with staph aureus. Blood cultures showing MRSA. increase the PEEP up to 10 and drop the FiO2 down to 80% and gradually wean it down to maintain a saturation above 90%.we'll keep the tidal volume of 500 aspirated 32. We'll give the patient bicarb infusion. The patient was started on sodium bicarbonate with a total of 150 mEqD5 water at the rate of 100 mL an hour Blood culture Check pro calcitonin level follow-up levels which is pending check Legionella urine antigen, pending DuoNeb nebulized treatments around the clock Continue sedation with propofol, currently running at 30 g per KG per minute Enteral feeding for nutritional support and dietary consultation will be obtained Daily chest x-ray and blood gases Lovenox 40 milligrams subcu for DVT prophylaxis IV Protonix 40 mg every 24 hours consults nephrology Condition is critical and will continue to follow. This evaluation was done and more than 30 minutes and this is a critically care evaluation. Time with Patient: Greater than 30 Time with Patient: Greater than 30
--- NOTE | 2020-02-15 08:32 | XR ---
EXAMINATION TYPE: XR chest 1V portable DATE OF EXAM: 02/15/2020 COMPARISON: Prior chest x-ray 02/14/2020 HISTORY: Intubated TECHNIQUE: Single frontal view of the chest is obtained. FINDINGS: Endotracheal tube, NG tube, left jugular central venous catheter are overlying appropriate positions, distal tip of the gastric tube not included on exam. Diffuse airspace disease persists in the left lung. Prominent lung volume ingesting underlying COPD. Heart is small and stable. Some mini mal patchy basilar density again noted on the right. Aorta is dense. IMPRESSION: Correlate for pneumonia. Difficult to exclude underlying mass, follow-up suggested. Ther e is underlying emphysema.
[2020-02-15] MEDS ORDERED: CEFEPIME 2 GM in SODIUM CHLORIDE 0.9% 100 ML IVPB SCH (09:00)
[2020-02-15] MEDS: BUDESONIDE 1 MG/2 ML NEBU INHALATION SCH ×2 (09:18→20:12)
[2020-02-15] MEDS: FORMOTEROL FUMARATE 20 MCG/2 ML NEBU INHALATION SCH ×2 (09:18→20:13)
[2020-02-15] MEDS: PANTOPRAZOLE 40 MG/10 ML VIAL IVP SCH (09:58)
[2020-02-15] MEDS: DEXTROSE 5% IN WATER 1,000 ML with SODIUM BICARB (1 MEQ/ML) 150 ML IV SCH (09:58)
[2020-02-15] MEDS: CHLORHEXIDINE GLUCONATE 15 ML CUP MUCOUS MEM SCH ×2 (09:58→20:50)
[2020-02-15] MEDS: ENOXAPARIN 40 MG/0.4 ML SYRINGE SQ SCH (09:59)
[2020-02-15] MEDS: AZITHROMYCIN 500 MG in SODIUM CHLORIDE 0.9% 250 ML IVPB SCH (09:59)
[2020-02-15] MEDS: LINEZOLID 600 MG in DEXTROSE/WATER 1 300ML.BAG IVPB SCH ×2 (10:00→22:06)
--- NOTE | 2020-02-15 10:43 | US ---
EXAMINATION TYPE: US kidneys/renal and bladder DATE OF EXAM: 02/15/2020 COMPARISON: NONE CLINICAL HISTORY: VISHNU. Intubated ICU patient, VISHNU EXAM MEASUREMENTS: Right Kidney: 11.1 x 5.1 x 5.0 cm Left Kidney: 10.9 x 4.0 x 4.7 cm Right Kidney: No hydronephrosis or masses seen Left Kidney: No hydronephrosis or masses seen Bladder: dumont cath Scant amount of free fluid within RUQ along dome of liver There is no evidence for hydronephrosis at this point in time. No nephrolithiasis is seen. No missy s are identified. Cortical medullary differentiation is maintained. IMPRESSION: No hydronephrosis. Small amount of ascites noted.
[2020-02-15 12:01] LABS: Glucose,Whole Blood 109 mg/dL (75-99)
--- NOTE | 2020-02-15 13:13 | CONS ---
CONSULTATION REASON FOR CONSULT: Renal failure. HISTORY OF PRESENT ILLNESS: Patient is a 64-year-old male who was admitted to the hospital on 02/13/2020 with complaints of weakness, not feeling well. He felt very lightheaded. He did fall, but did not pass out, did not hurt himself. Upon arrival into the ER, patient was hypoxic. He was intubated, his COVID-19 test was negative. However, patient's general condition deteriorated significantly. His chest x-ray showed left lung pneumonia and blood cultures were positive for Staph aureus which is MRSA. Patient is maintained on Levophed, currently at about 20 mcg. Serum creatinine was 1.0 on initial admission and now it is increased to 2.49. Urine output is low at about 10 to 15 mL/hour an hour. Medication-suazo, patient is currently on Zyvox. He also had atrial fibrillation and was maintained on amiodarone, currently he is in sinus rhythm. No significant sores or ulcers noted. PAST MEDICAL HISTORY: Significant for COPD, hyperlipidemia, hypertension. SOCIAL HISTORY: Positive for smoking, depression. No history of drug abuse or alcohol abuse. MEDICATIONS: At home prior to admission included Zocor, Flovent, Toprol, Ditropan, omeprazole. ALLERGIES: Include CODEINE, PENICILLIN, IODINE causes rash and hives. SHELLFISH causes rash and hives. PENICILLIN causes swelling and itching. REVIEW OF SYSTEMS: As per HPI. Other systems negative. PHYSICAL EXAMINATION: Patient is currently sedated, he is on the vent. Blood pressure was 127/63, heart rate 111 per minute. He is currently afebrile. Examination of the heart S1, S2. Examination of the lungs, bilateral breath sounds are heard. Abdomen is soft, nontender. Examination of the lower extremities shows no evidence of edema. [employer] exam cannot be performed as patient is medically sedated. LABS: Show sodium of 133, potassium 5.5, chloride 108, CO2 is 17, BUN 78, serum creatinine 2.49, hemoglobin 13.6 g/dL. Lactic acid was 3.2. ASSESSMENT: 1. Acute kidney injury, ATN associated with underlying infection, hypotension and sepsis, currently oliguric with worsening renal function. Continue with aggressive IV fluids. No nephrotoxic agents on board. UA shows trace blood and protein. Check ultrasound of the kidneys. Patient also had IV contrast on initial admission on 02/13/2020. Therefore, high risk for contrast induced nephropathy, as well over the next few days. 2. Mild hyperkalemia associated with acute kidney injury, metabolic acidosis, expect improvement as renal function improves and urine output improves. 3. Metabolic acidosis associated with renal failure and lactic acidosis, started on bicarb drip. 4. MRSA pneumonia in the left lung, maintained on Zyvox. 5. Sepsis from MRSA pneumonia. 6. Acute hypoxic respiratory failure, currently on the vent. 7. Atrial fibrillation, now converted back to sinus rhythm. 8. COVID-19 negative, although clinically there is suspicion and patient is maintained on azithromycin, I believe he got steroids as well. PLAN: Continue with IV bicarb. Continue antibiotics and aggressive IV hydration. Repeat labs in a.m. Continue to avoid nephrotoxic agents. Watch for contrast-induced nephropathy. MMODL / IJN: [id number] /
--- NOTE | 2020-02-15 13:22 | P.PN ---
Subjective This is a 64 years old male with multiple medical problems as below who presents because of left lung pneumonia with acute hypoxic respiratory failure needing intubation and mechanical ventilation, he has positive blood culture for staph, also he has trending up creatinine 1-1.4-2.4 today currently he is in the ICU in critical condition and cannot provide information. He is kept on several antibiotics including Zithromax, cefepime and Zyvox. He had fever of 101 on admission, no more fever. He is tachycardic and tachypneic. Blood pressure 124/61. Sodium is 133, potassium 5.5, creatinine 2.4, glucose control. Lactic acid is elevated at 2.7. Liver enzymes slightly elevated with AST 402 and ALT 92. Sputum culture and blood culture growing MRSA Renal ultrasound showing no hydronephrosis. Chest x-ray reviewed by me showing consolidation at most of his left lung. Review of systems: N/a Active Medications Generic Name Dose Route Start Last Admin Trade Name Freq PRN Reason Stop Dose Admin Acetaminophen 650 mg 02/14/20 00:37 02/14/20 01:24 Acetaminophen Tab 325 Mg Tab PO 650 mg Q6HR PRN Administration Fever and/ or Pain Albuterol/Ipratropium 3 ml 02/13/20 20:00 02/15/20 12:44 Ipratropium-Albuterol 3 Ml Neb INHALATION 3 ml RT-Q4H AIMEE Administration Budesonide 1 mg 02/13/20 20:00 02/15/20 09:18 Budesonide 1 Mg/2 Ml Nebu INHALATION 1 mg RT-BID AIMEE Administration Chlorhexidine Gluconate 15 ml 02/14/20 09:00 02/15/20 09:58 Chlorhexidine Gluconate 15 Ml Cup MUCOUS MEM 15 ml BID AIMEE Administration Enoxaparin Sodium 30 mg 02/16/20 09:00 Enoxaparin 30 Mg/0.3 Ml Syringe SQ DAILY AIMEE Formoterol Fumarate 20 mcg 02/13/20 20:00 02/15/20 09:18 Formoterol Fumarate 20 Mcg/2 Ml Nebu INHALATION 20 mcg RT-BID AIMEE Administration Azithromycin 500 mg/ Sodium 250 mls @ 250 mls/hr 02/14/20 09:00 02/15/20 09:59 Chloride IVPB 250 mls/hr DAILY AIMEE Administration Propofol 1,000 mg/ IV Solution 100 mls @ 0 mls/hr 02/14/20 00:30 02/15/20 04:55 IV 30 mcg/kg/min .Q0M AIMEE 10.566 mls/hr Administration Protocol Titrate Amiodarone HCl 300 mg/ 250 mls @ 25 mls/hr 02/14/20 20:15 02/14/20 20:29 Dextrose/Water IV 02/15/20 14:14 0.5 mg/min .Q10H AIMEE 25 mls/hr Administration Protocol 0.5 MG/MIN Norepinephrine Bitartrate 8 mg 258 mls @ 5.679 mls/hr 02/14/20 23:00 02/15/20 06:35 / Sodium Chloride IV 0.2 mcg/kg/min .Q24H AIMEE 22.717 mls/hr Titration Protocol 0.05 MCG/KG/MIN Sodium Bicarbonate 150 ml/ 1,150 mls @ 100 mls/hr 02/15/20 07:30 02/15/20 09:58 Dextrose/Water IV 100 mls/hr .[id number] AIMEE Administration Linezolid 600 mg/ IV Solution 300 mls @ 150 mls/hr 02/15/20 09:00 02/15/20 10:00 IVPB 150 mls/hr Q12HR AIMEE Administration Protocol Cefepime HCl 1 gm/ Sodium 50 mls @ 12.5 mls/hr 02/15/20 21:00 Chloride IVPB Q12HR AIMEE Naloxone HCl 0.2 mg 02/13/20 16:52 Naloxone 0.4 Mg/Ml 1 Ml Vial IV Q2M PRN Opioid Reversal Pantoprazole Sodium 40 mg 02/14/20 09:00 02/15/20 09:58 Pantoprazole 40 Mg/10 Ml Vial IVP 40 mg DAILY AIMEE Administration Objective - Vital Signs Vital signs: Vital Signs Temp 98.9 F 02/15/20 08:00 Pulse 111 H 02/15/20 11:00 Resp 32 H 02/15/20 11:00 BP 127/63 02/15/20 11:00 Pulse Ox 91 L 02/15/20 11:00 Intake & Output 02/14/20 02/15/20 02/15/20 18:59 06:59 18:59 Intake Total 1340 3566.759 100 Output Total 295 235 40 Balance 1045 3331.759 60 Weight 58.7 kg 63.3 kg Intake: IV 240 3180 100 Sodium Chloride 240 3180 100 Intake, IV Titration 1100 166.759 Amount Norepinephrine 8 mg In 73.719 Sodium Chloride 0.9% 250 ml @ 0.05 MCG/KG/MIN 5. 679 mls/hr IV .Q24H PENDING SALE TO [facility] Rx#:[id number] Sodium Chloride 0.9% 1, 1000 000 ml @ 999 mls/hr IV . Q1H1M ONE Rx#:[id number] propofoL 1,000 mg In 100 93.04 Empty Bag 1 bag @ Titrate IV .Q0M PENDING SALE TO [facility] Rx#: [id number] Tube Feeding 160 Other 60 Output: Urine 295 235 40 Other: Voiding Method Indwelling Catheter Indwelling Catheter Indwelling Catheter ABP, PAP, CO, CI - Last Documented Arterial Blood Pressure 101/53 - Exam -GENERAL: The patient is intubated and sedated HEENT: Pupils are round and equally reacting to light. EOMI. No scleral icterus. No conjunctival pallor. Normocephalic, atraumatic. No pharyngeal erythema. No thyromegaly. CARDIOVASCULAR: S1 and S2 present. No murmurs, rubs, or gallops. -PULMONARY: Chest is clear to auscultation, no wheezing or crackles. Bronchial breath sounds on the left side ABDOMEN: Soft, nontender, nondistended, normoactive bowel sounds. No palpable organomegaly. MUSCULOSKELETAL: No joint swelling or deformity. EXTREMITIES: No cyanosis, clubbing, or pedal edema. NEUROLOGICAL: Gross neurological examination did not reveal any focal deficits. SKIN: No rashes. no petechiae. - Labs CBC & Chem 7: 02/15/20 04:25 02/15/20 04:25 Labs: Abnormal Lab Results - Last 24 Hours (Table) 02/14/20 02/14/20 02/14/20 Range/Units 12:38 17:55 23:28 WBC (3.8-10.6) k/uL Neutrophils # (Manual) (1.3-7.7) k/uL Lymphocytes # (Manual) (1.0-4.8) k/uL Myelocytes # (Manual) (0) k/uL Nucleated RBCs (0-0) /100 WBC ABG pH (7.35-7.45) ABG pCO2 (35-45) mmHg ABG pO2 (83-108) mmHg ABG HCO3 (21-25) mmol/L ABG Total CO2 (19-24) mmol/L ABG O2 Saturation (94-97) % ABG Lactic Acid (0.5-1.6) mmol/L Sodium (137-145) mmol/L Potassium (3.5-5.1) mmol/L Chloride (98-107) mmol/L Carbon Dioxide (22-30) mmol/L BUN (9-20) mg/dL Creatinine (0.66-1.25) mg/dL Glucose (74-99) mg/dL POC Glucose (mg/dL) 107 H 112 H 118 H (75-99) mg/dL Plasma Lactic Acid Elio (0.7-2.0) mmol/L Calcium (8.4-10.2) mg/dL AST (17-59) U/L ALT (4-49) U/L Total Protein (6.3-8.2) g/dL Albumin (3.5-5.0) g/dL 02/15/20 02/15/20 02/15/20 Range/Units 04:25 04:25 04:26 WBC 19.8 H (3.8-10.6) k/uL Neutrophils # (Manual) 18.40 H (1.3-7.7) k/uL Lymphocytes # (Manual) 0.40 L (1.0-4.8) k/uL Myelocytes # (Manual) 0.40 H (0) k/uL Nucleated RBCs 1 H (0-0) /100 WBC ABG pH (7.35-7.45) ABG pCO2 (35-45) mmHg ABG pO2 (83-108) mmHg ABG HCO3 (21-25) mmol/L ABG Total CO2 (19-24) mmol/L ABG O2 Saturation (94-97) % ABG Lactic Acid (0.5-1.6) mmol/L Sodium 133 L (137-145) mmol/L Potassium 5.5 H (3.5-5.1) mmol/L Chloride 108 H (98-107) mmol/L Carbon Dioxide 17 L (22-30) mmol/L BUN 78 H (9-20) mg/dL Creatinine 2.49 H (0.66-1.25) mg/dL Glucose 122 H (74-99) mg/dL POC Glucose (mg/dL) 117 H (75-99) mg/dL Plasma Lactic Acid Elio (0.7-2.0) mmol/L Calcium 7.5 L (8.4-10.2) mg/dL AST 402 H (17-59) U/L ALT 92 H (4-49) U/L Total Protein 4.8 L (6.3-8.2) g/dL Albumin 2.2 L (3.5-5.0) g/dL 02/15/20 02/15/20 02/15/20 Range/Units 05:24 06:00 07:13 WBC (3.8-10.6) k/uL Neutrophils # (Manual) (1.3-7.7) k/uL Lymphocytes # (Manual) (1.0-4.8) k/uL Myelocytes # (Manual) (0) k/uL Nucleated RBCs (0-0) /100 WBC ABG pH 7.11 L* 7.20 L (7.35-7.45) ABG pCO2 48 H (35-45) mmHg ABG pO2 78 L 62 L (83-108) mmHg ABG HCO3 15 L 17 L (21-25) mmol/L ABG Total CO2 17 L 18 L (19-24) mmol/L ABG O2 Saturation 93.4 L 90.1 L (94-97) % ABG Lactic Acid 3.2 H* (0.5-1.6) mmol/L Sodium (137-145) mmol/L Potassium (3.5-5.1) mmol/L Chloride (98-107) mmol/L Carbon Dioxide (22-30) mmol/L BUN (9-20) mg/dL Creatinine (0.66-1.25) mg/dL Glucose (74-99) mg/dL POC Glucose (mg/dL) (75-99) mg/dL Plasma Lactic Acid Elio (0.7-2.0) mmol/L Calcium (8.4-10.2) mg/dL AST (17-59) U/L ALT (4-49) U/L Total Protein (6.3-8.2) g/dL Albumin (3.5-5.0) g/dL 02/15/20 02/15/20 Range/Units 10:15 11:59 WBC (3.8-10.6) k/uL Neutrophils # (Manual) (1.3-7.7) k/uL Lymphocytes # (Manual) (1.0-4.8) k/uL Myelocytes # (Manual) (0) k/uL Nucleated RBCs (0-0) /100 WBC ABG pH (7.35-7.45) ABG pCO2 (35-45) mmHg ABG pO2 (83-108) mmHg ABG HCO3 (21-25) mmol/L ABG Total CO2 (19-24) mmol/L ABG O2 Saturation (94-97) % ABG Lactic Acid (0.5-1.6) mmol/L Sodium (137-145) mmol/L Potassium (3.5-5.1) mmol/L Chloride (98-107) mmol/L Carbon Dioxide (22-30) mmol/L BUN (9-20) mg/dL Creatinine (0.66-1.25) mg/dL Glucose (74-99) mg/dL POC Glucose (mg/dL) 109 H (75-99) mg/dL Plasma Lactic Acid Elio 2.7 H* (0.7-2.0) mmol/L Calcium (8.4-10.2) mg/dL AST (17-59) U/L ALT (4-49) U/L Total Protein (6.3-8.2) g/dL Albumin (3.5-5.0) g/dL Microbiology - Last 24 Hours (Table) 02/13/20 18:02 Gram Stain - Final Sputum Sputum Culture - Final Methicillin resist S. aureus 02/13/20 13:10 Blood Culture Gram Stain - Preliminary Blood Blood Culture - Preliminary Presumptive MRSA Assessment and Plan Assessment: Left lung pneumonia secondary to MRSA Acute hypoxic respiratory failure secondary to left lung pneumonia MRSA bacteremia/septicemia Acute kidney injury COPD Hypertension Hyperlipidemia Mild protein calorie malnutrition Plan: This is a 64 years old who presents with worsening left pneumonia with respiratory failure. Continue with vent management as per pulmonary/critical care team. Continue with Zyvox and other antibiotics. Follow-up recommendation by pulmonary and nephrology team Labs and medication were reviewed.. Continue same treatment. Continue with symptomatic treatment. Resume home medication. Monitor lytes and vitals. DVT and GI prophylaxis. Further recommendationsas per clinical course of the patient DVT prophylaxis: Subcutaneous Lovenox GI Prophylaxis: Ppi Prognosis is guarded
[2020-02-15] MEDS ORDERED: propofoL 100 ML IV ONE (13:32)
--- NOTE | 2020-02-15 17:43 | ECHOF ---
Referral Reason:a-fib MEASUREMENTS -------- HEIGHT: 180.3 cm WEIGHT: 63.0 kg BP: RVIDd: 2.4 cm (< 3.3) IVSd: 1.2 cm (0.6 - 1.1) LVIDd: 2.8 cm (3.9 - 5.3) LVPWd: 1.2 cm (0.6 - 1.1) IVSs: 1.3 cm LVIDs: 2.1 cm LVPWs: 1.5 cm Ao Diam: 2.9 cm (2.0 - 3.7) AV Cusp: 1.9 cm (1.5 - 2.6) LA Diam: 2.6 cm (2.7 - 3.8) MV EXCURSION: 19.740 mm (> 18.000) MV EF SLOPE: 88 mm/s (70 - 150) EPSS: 0.5 cm MV E Asher: 0.74 m/s MV DecT: 153 ms MV A Asher: 0.51 m/s MV E/A Ratio: 1.46 RAP: 20.00 mmHg RVSP: 66.35 mmHg FINDINGS -------- Resting tachycardia (HR>100bpm). This was a technically difficult study with suboptimal views. Pt. on a vent. Study taken from [facility] The left ventricular size is normal. There is mild concentric left ventricular hypertrophy. Overa ll left ventricular systolic function is normal with, an EF between 55 - 60 %. The right ventricle is mildly enlarged. The global wall thickness of the right ventricle is mildly enlarged. The right ventricular systolic function is hyperdynamic. The left atrial size is normal. The right atrial size is normal. The aortic valve is trileaflet and appears structurally normal. There is trace mitral regurgitation. There is mild mitral valve prolapse. Mild tricuspid regurgitation present. There is moderate to severe pulmonary hypertension. The rig ht ventricular systolic pressure, as measured by Doppler, is 66.35mmHg. 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 Cannot exclude vegetation, would recommend STEPH if clinically indicated. The pulmonic valve was not well visualized. The aortic root size is normal. The inferior vena cava is dilated with no significant inspiratory collapse which is consistent estima dawson right atrial pressure of >20 mmHg. There is a trivial pericardial effusion present. CONCLUSIONS -------- 1. The left ventricular size is normal. 2. There is mild concentric left ventricular hypertrophy. 3. Overall left ventricular systolic function is normal with, an EF between 55 - 60 %. 4. The right ventricle is mildly enlarged. 5. The global wall thickness of the right ventricle is mildly enlarged. 6. The right ventricular systolic function is hyperdynamic. 7. There is trace mitral regurgitation. 8. There is mild mitral valve prolapse. 9. Mild tricuspid regurgitation present. 10. There is moderate to severe pulmonary hypertension. 11. The right ventricular systolic pressure, as measured by Doppler, is 66.35mmHg. 12. 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 Cannot exclude vegetation, would recommend STEPH if clinically indicated. 13. The inferior vena cava is dilated with no significant inspiratory collapse which is consistent es timated right atrial pressure of >20 mmHg. 14. There is a trivial pericardial effusion present. BALLISTIC EXPERT: Janis Cartagena RDCS
[2020-02-15] MEDS ORDERED: CALCIUM GLUCONATE 1 GM in SODIUM CHLORIDE 0.9% 100 ML IVPB ONE (19:01)
[2020-02-15] MEDS: AMIODARONE 300 MG in DEXTROSE 5% IN WATER 250 ML IV SCH ×2 (19:06)
[2020-02-15] MEDS: NOREPINEPHRINE 8 MG in SODIUM CHLORIDE 0.9% 250 ML IV SCH (20:17)
[2020-02-15 20:46] LABS: Albumin 1.6 g/dL (3.5-5.0); Total Bilirubin 1.2 mg/dL (0.2-1.3); Total Protein 3.7 g/dL (6.3-8.2)
[2020-02-15] MEDS: CEFEPIME 1 GM in SODIUM CHLORIDE 0.9% 50 ML IVPB SCH (20:50)
[2020-02-15 20:55] LABS: Calcium 6.4 mg/dL (8.4-10.2); Potassium 6.1 mmol/L (3.5-5.1)
[2020-02-15] MEDS ORDERED: DEXTROSE 50% SYRINGE 50 ML IVP STA (21:01)
[2020-02-15] MEDS ORDERED: INSULIN REGULAR 100 UNIT/ML VIAL IV ONE (21:15)
[2020-02-16 00:22] LABS: Glucose,Whole Blood 118 mg/dL (75-99)
[2020-02-16] MEDS ORDERED: AMIODARONE 300 MG in DEXTROSE 5% IN WATER 250 ML IV SCH ×2 (01:00)
[2020-02-16] MEDS ORDERED: SODIUM BICARB 8.4% 50 ML SYR (1 MEQ/ML) IV STA ×2 (01:54→07:44)
[2020-02-16] MEDS ORDERED: INSULIN REGULAR 100 UNIT/ML VIAL IV ONE ×2 (01:55→06:51)
[2020-02-16] MEDS ORDERED: DEXTROSE 50% SYRINGE 50 ML IVP STA ×2 (01:56→06:51)
[2020-02-16] MEDS: DEXTROSE 5% IN WATER 1,000 ML with SODIUM BICARB (1 MEQ/ML) 150 ML IV SCH ×2 (02:14→09:02)
[2020-02-16] MEDS: NOREPINEPHRINE 8 MG in SODIUM CHLORIDE 0.9% 250 ML IV SCH (02:15)
[2020-02-16] MEDS ORDERED: SODIUM POLYSTYRENE SULFONATE 15 GM/60 ML BOTTLE PO STA (02:45)
[2020-02-16] MEDS: IPRATROPIUM-ALBUTEROL 3 ML NEB INHALATION SCH ×2 (03:48→08:14)
[2020-02-16 04:29] LABS: Glucose,Whole Blood 201 mg/dL (75-99)
[2020-02-16 05:07] LABS: Lactic Acid, Venous 9.8 mmol/L (0.7-2.0)
[2020-02-16 05:29] LABS: HCT 37.2 % (39.0-53.0); HGB 11.4 gm/dL (13.0-17.5); Hypochromasia Moderate; MCH 31.5 pg (25.0-35.0); MCHC 30.8 g/dL (31.0-37.0); MCV 102.5 fL (80.0-100.0); Macrocytosis Slight; Platelet Count 155 k/uL (150-450); RBC 3.63 m/uL (4.30-5.90); RDW 14.1 % (11.5-15.5)
[2020-02-16 05:41] LABS: ABG Base Excess -16.6 mmol/L; ABG HCO3 14 mmol/L (21-25); ABG Oxygen Saturation 95.6 % (94-97); ABG PCO2 46 mmHg (35-45); ABG PO2 88 mmHg (83-108); ABG TCO2 15 mmol/L (19-24); Allen Test Performed? Yes
[2020-02-16 05:46] LABS: ABG PH 7.08 (7.35-7.45)
[2020-02-16 05:49] LABS: Albumin 1.8 g/dL (3.5-5.0); Calcium 6.5 mg/dL (8.4-10.2); Total Bilirubin 1.9 mg/dL (0.2-1.3); Total Protein 3.8 g/dL (6.3-8.2)
[2020-02-16] MEDS ORDERED: SODIUM CHLORIDE 0.9% 2,000 ML IV ONE (06:29)
[2020-02-16 06:32] LABS: Potassium 6.1 mmol/L (3.5-5.1)
--- NOTE | 2020-02-16 06:34 | P.PN ---
Subjective Progress Note Date: 02/16/20 64-year-old male patient came into the ED yesterday with generalized weakness and lightheadedness and he felt dizzy and he fell to the ground with no loss of consciousness. Denies having any chest pain. He did have some runny nose and no apparent exposure to coronavirus. He was combining of shortness of breath. No fever. No chills. He is pulse ox was 70% on room air with a respiratory rate of 26 and a heart rate of 122. Chest x-ray showed an extensive left lung pneumonia. CT angiogram was done and showed no evidence of any pulmonary embolism and there was a left upper lobe and left lower lobe airspace consolidation. Subsequently, the patient's respiratory status decompensated and the patient had to be intubated and placed on a mechanical ventilator. He was placed on assist control mode at the rate of 26 with a TV of 500 and FiO2 of 100% with a PEEP of 5. Subsequent blood gases showed some improvement in oxygenation. The patient was started on broad-spectrum antibiotics including a combination of Rocephin and Zithromax and vancomycin. The patient was resuscitated IV fluids. The patient is currently receiving normal saline at the rate of 130s cc an hour after receiving a total of 3 L of bolus in the emergency department. The white cell count was at 7.5 with a hemoglobin of 14.6. There was 23% bandemia on the initial CBC. The rest of the blood work and electrolytes are within normal limits. BUN was slightly elevated at 49. LFTs were within normal. CPK was 116. Troponin was 0.03. The COVID 19 PCR was negative.on today's evaluation, the patient's pH is at 7.34 with a pCO2 of 36 and pO2 of 119 and there is been some improvement in oxygenation. He remains on a PEEP of 5. Chest x-ray still showing dense consolidation of the entire left lung consistent with an airspace disease. tthe blood cultures showing gram- positive cocci and clusters and the patient will be covered with vancomycin. He is afebrile for now. Urine output is in order of 40 mL an hour.he is on no pressors for now. on 02/15/2020, the patient is being seen for a follow-up. The patient remains intubated on a mechanical ventilator. He does have an extensive left lung pneumonia and the sputum cultures positive for staph aureus in the blood cultures presumptively MRSA. The patient remains on a combination of vancomycin, Zithromax and Rocephin. Note that the patient has also developed an acute kidney injury. On today's evaluation creatinine is up to 2.4. The patient overnight received 3 L of normal saline boluses as the patient was having issues with hypotension low urine output. Ultimately he was started on norepinephrine infusion which is currently running at 12 mcg/min. The patient was also having runs of atrial fibrillation with rapid ventricular response. He received several boluses of amiodarone and currently is on a maintenance of 0.5 mg/m. His current rhythm is sinus. He remains on a mechanical ventilator. Necessary ventilator changes were done. Based on the morning blood gases that showed a pH of 7.1 with a pCO2 of 48 and pO2 of 78, I switch this patient to an assist-control mode at the rate of 32 with a tidal volume of 500 and FiO2 of 80% with a PEEP of 10.he is obviously metabolic acidosis. Lactic acid level was at 3.2 and the patient had a non-anion gap metabolic acidosis with a serum bicarb of 17 and the patient was already given a total of 1100 mEq of sodium bicarbonate. He will be also started on a bicarb infusion at the rate of 100 mL an hour. He is sedated with propofol which is running at 30 g. He is also on enteral feeding. His white cell count is up to 19.8. ,, the patient is doing poorly. The patient is being seen in follow-up in the intensive care unit. Throughout the day yesterday, the patient developed hypotension, worsening renal function, low urine output, and he requiredseveral boluses of IV fluids and he received probably 4 L of IV fluids total and currently is on a maintenance of 1 50 mL of sodium bicarb infusion with 150 mEq in addition to norepinephrine which is running at 0.16 mcg/kg per minute and the patient is also on amiodarone drip at maintenance a 0.5 mg per minute. Cardiac rhythm is sinus. He remains on a mechanical ventilator. His assist-control mode at the rate of 32 with a tidal volume of 500 and FiO2 of 80% with a PEEP of 10. His chest x-ray from this morning shows complete consolidation of the left lung. ET tube is in a good location. The right lung essentially clear. C linically, the patient is doing poorly. He was taken off the sedation on 12 hours ago and tells this morning, the patient remains completely unresponsive. His blood gases from today shows a pH of 7.08 with a pCO2 of 46 and pO2 of 88. His lactic acid level was as high as 10 and currently is down to 9.8. The patient had developed an acute kidney injury. His potassium level was as high as 6.5. Throughout the night, the patient received treatment for hyperkalemia which included bicarb, 50 insulin and he also received calcium gluconate and 30 g of Kayexalate. Most recent potassium level is pending for now. Blood work from this morning is pending for now. Barraza catheter in place. He developed a shock liver and the patient's AST is up to 2550 and ALT is at 573. His calcium level is at 6.4 and the patient was given calcium gluconate. His pro-calcitonin level is up to 88. The patient is currently on a combination of Zyvox, cefepime and Zithromax. ID is on the case. Nephrology is on the case. The sputum culture resulted in to MRSA. Blood culture resulted into an MRSA. Objective - Vital Signs Vital signs: Vital Signs Temp 98.7 F 02/16/20 03:30 Pulse 102 H 02/16/20 05:15 Resp 32 H 02/16/20 05:15 BP 116/56 02/16/20 05:15 Pulse Ox 91 L 02/16/20 05:15 Intake & Output 02/15/20 02/15/20 02/16/20 06:59 18:59 06:59 Intake Total 3566.759 480.738 2759.263 Output Total 235 60 15 Balance 3331.759 914.262 7009.263 Weight 63.3 kg Intake: IV 3180 220 2280 Dextrose 5% in Water 1, 1150 000 ml @ 150 mls/hr IV . Q7H40M AIMEE with Sodium Bicarb (1 Meq/ml) 150 ml Rx#:[id number] Sodium Chloride 3180 220 1130 Intake, IV Titration 166.759 184.281 236.263 Amount Norepinephrine 8 mg In 73.719 184.281 136.263 Sodium Chloride 0.9% 250 ml @ 0.05 MCG/KG/MIN 5. 679 mls/hr IV .Q24H A[facility]EE Rx#:[id number] propofoL 1,000 mg In 93.04 100 Empty Bag 1 bag @ Titrate IV .Q0M AIMEE Rx#: [id number] Tube Feeding 160 220 Other 60 30 Output: Urine 235 60 15 Other: Voiding Method Indwelling Catheter Indwelling Catheter Indwelling Catheter ABP, PAP, CO, CI - Last Documented Arterial Blood Pressure 71/47 - Exam Gen. appearance the patient is sedated, comfortable active distress intubated on a mechanical ventilator.the patient is currently off sedation. He is unresponsive to deep painful stimulation. He does probably go some mild grimacing with deep painful stimulation. Head exam was generally normal. There was no scleral icterus or corneal arcus. Mucous membranes were moist. Neck was supple and without jugular venous distension, thyromegaly, or carotid bruits. Carotids were easily palpable bilaterally. There was no adenopathy. Orogastric and orotracheal tube are both in place. Lungs sounds are diminished in the patient's contacted the left lung base. No scattered wheezes. Cardiac exam revealed the PMI to be normally situated and sized. The rhythm was regular and no extrasystoles were noted during several minutes of auscultation. The first and second heart sounds were normal and physiologic splitting of the second heart sound was noted. There were no murmurs, rubs, clicks, or gallops. Abdominal exam revealed normal bowel sounds. The abdomen was soft, non-tender, and without masses, organomegaly, or appreciable enlargement of the abdominal aorta. Examination of the extremities revealed easily palpable radial, femoral and pedal pulses. There was no cyanosis, clubbing or edema. Examination of the skin revealed no evidence of significant rashes, suspicious appearing nevi or other concerning lesions. Neurologically the patient as unresponsive at this point in time. - Labs CBC & Chem 7: 02/16/20 04:20 02/16/20 00:15 Labs: Abnormal Lab Results - Last 24 Hours (Table) 02/15/20 02/15/20 02/15/20 Range/Units 06:00 07:13 10:15 WBC (3.8-10.6) k/uL RBC (4.30-5.90) m/uL Hgb (13.0-17.5) gm/dL Hct (39.0-53.0) % MCV (80.0-100.0) fL MCHC (31.0-37.0) g/dL ABG pH 7.20 L (7.35-7.45) ABG pCO2 (35-45) mmHg ABG pO2 62 L (83-108) mmHg ABG HCO3 17 L (21-25) mmol/L ABG Total CO2 18 L (19-24) mmol/L ABG O2 Saturation 90.1 L (94-97) % ABG Lactic Acid 3.2 H* (0.5-1.6) mmol/L Sodium (137-145) mmol/L Potassium (3.5-5.1) mmol/L Chloride (98-107) mmol/L Carbon Dioxide (22-30) mmol/L BUN (9-20) mg/dL Creatinine (0.66-1.25) mg/dL Glucose (74-99) mg/dL POC Glucose (mg/dL) (75-99) mg/dL Plasma Lactic Acid Elio 2.7 H* (0.7-2.0) mmol/L Calcium (8.4-10.2) mg/dL AST (17-59) U/L ALT (4-49) U/L Ammonia (<30) umol/L Total Protein (6.3-8.2) g/dL Albumin (3.5-5.0) g/dL Procalcitonin (0.02-0.09) ng/mL 02/15/20 02/15/20 02/15/20 Range/Units 11:59 16:30 18:25 WBC (3.8-10.6) k/uL RBC (4.30-5.90) m/uL Hgb (13.0-17.5) gm/dL Hct (39.0-53.0) % MCV (80.0-100.0) fL MCHC (31.0-37.0) g/dL ABG pH (7.35-7.45) ABG pCO2 (35-45) mmHg ABG pO2 (83-108) mmHg ABG HCO3 (21-25) mmol/L ABG Total CO2 (19-24) mmol/L ABG O2 Saturation (94-97) % ABG Lactic Acid (0.5-1.6) mmol/L Sodium (137-145) mmol/L Potassium (3.5-5.1) mmol/L Chloride (98-107) mmol/L Carbon Dioxide (22-30) mmol/L BUN (9-20) mg/dL Creatinine (0.66-1.25) mg/dL Glucose (74-99) mg/dL POC Glucose (mg/dL) 109 H (75-99) mg/dL Plasma Lactic Acid Elio 8.4 H* (0.7-2.0) mmol/L Calcium (8.4-10.2) mg/dL AST (17-59) U/L ALT (4-49) U/L Ammonia (<30) umol/L Total Protein (6.3-8.2) g/dL Albumin (3.5-5.0) g/dL Procalcitonin 88.62 H (0.02-0.09) ng/mL 02/15/20 02/15/20 02/16/20 Range/Units 19:35 19:35 00:15 WBC (3.8-10.6) k/uL RBC (4.30-5.90) m/uL Hgb (13.0-17.5) gm/dL Hct (39.0-53.0) % MCV (80.0-100.0) fL MCHC (31.0-37.0) g/dL ABG pH (7.35-7.45) ABG pCO2 (35-45) mmHg ABG pO2 (83-108) mmHg ABG HCO3 (21-25) mmol/L ABG Total CO2 (19-24) mmol/L ABG O2 Saturation (94-97) % ABG Lactic Acid (0.5-1.6) mmol/L Sodium 135 L (137-145) mmol/L Potassium 6.1 H* 6.5 H* (3.5-5.1) mmol/L Chloride 111 H (98-107) mmol/L Carbon Dioxide 12 L (22-30) mmol/L BUN 85 H (9-20) mg/dL Creatinine 3.36 H (0.66-1.25) mg/dL Glucose 52 L (74-99) mg/dL POC Glucose (mg/dL) (75-99) mg/dL Plasma Lactic Acid Elio 8.3 H* (0.7-2.0) mmol/L Calcium 6.4 L* (8.4-10.2) mg/dL AST 2550 H (17-59) U/L ALT 573 H (4-49) U/L Ammonia (<30) umol/L Total Protein 3.7 L (6.3-8.2) g/dL Albumin 1.6 L (3.5-5.0) g/dL Procalcitonin (0.02-0.09) ng/mL 02/16/20 02/16/20 02/16/20 Range/Units 00:20 01:00 04:20 WBC 15.5 H (3.8-10.6) k/uL RBC 3.63 L (4.30-5.90) m/uL Hgb 11.4 L (13.0-17.5) gm/dL Hct 37.2 L (39.0-53.0) % MCV 102.5 H (80.0-100.0) fL MCHC 30.8 L (31.0-37.0) g/dL ABG pH (7.35-7.45) ABG pCO2 (35-45) mmHg ABG pO2 (83-108) mmHg ABG HCO3 (21-25) mmol/L ABG Total CO2 (19-24) mmol/L ABG O2 Saturation (94-97) % ABG Lactic Acid (0.5-1.6) mmol/L Sodium (137-145) mmol/L Potassium (3.5-5.1) mmol/L Chloride (98-107) mmol/L Carbon Dioxide (22-30) mmol/L BUN (9-20) mg/dL Creatinine (0.66-1.25) mg/dL Glucose (74-99) mg/dL POC Glucose (mg/dL) 118 H (75-99) mg/dL Plasma Lactic Acid Elio 10.0 H* (0.7-2.0) mmol/L Calcium (8.4-10.2) mg/dL AST (17-59) U/L ALT (4-49) U/L Ammonia (<30) umol/L Total Protein (6.3-8.2) g/dL Albumin (3.5-5.0) g/dL Procalcitonin (0.02-0.09) ng/mL 02/16/20 02/16/20 02/16/20 Range/Units 04:20 04:27 04:51 WBC (3.8-10.6) k/uL RBC (4.30-5.90) m/uL Hgb (13.0-17.5) gm/dL Hct (39.0-53.0) % MCV (80.0-100.0) fL MCHC (31.0-37.0) g/dL ABG pH 7.08 L* (7.35-7.45) ABG pCO2 46 H (35-45) mmHg ABG pO2 (83-108) mmHg ABG HCO3 14 L (21-25) mmol/L ABG Total CO2 15 L (19-24) mmol/L ABG O2 Saturation (94-97) % ABG Lactic Acid (0.5-1.6) mmol/L Sodium (137-145) mmol/L Potassium (3.5-5.1) mmol/L Chloride (98-107) mmol/L Carbon Dioxide (22-30) mmol/L BUN (9-20) mg/dL Creatinine (0.66-1.25) mg/dL Glucose (74-99) mg/dL POC Glucose (mg/dL) 201 H (75-99) mg/dL Plasma Lactic Acid Elio 9.8 H* (0.7-2.0) mmol/L Calcium (8.4-10.2) mg/dL AST (17-59) U/L ALT (4-49) U/L Ammonia 49 H (<30) umol/L Total Protein (6.3-8.2) g/dL Albumin (3.5-5.0) g/dL Procalcitonin (0.02-0.09) ng/mL Microbiology - Last 24 Hours (Table) 02/13/20 18:02 Gram Stain - Final Sputum Sputum Culture - Final Methicillin resist S. aureus Assessment and Plan Plan: 1 acute pneumonia involving the left lung, secondary to MRSA. The blood culture was positive with MRSA. The sputum culture was positive for MRSA.. The patterson virus, COVID 19 evaluation was negative. The patient is currently on a combination of Zyvox cefepime and Zithromax. Legionella urine antigen came back negative. The patient is currently septic shock with multisystem organ failure. 2 acute hypoxic respiratory failure requiring the patient mechanical ventil ation. 3 COPD 4 septic shock secondary to above with multisystem organ failure.the patient is profoundly hypotensive and the patient is requiring pressors for hemodynamic support at this point in time. 5 acute leukocytosis secondary to above 6 acute kidney injury secondary to above and the patient is not producing any urine output for now. The patient has developedsevere metabolic acidosis, l actic acidosis and hyperkalemia. 7 severe metabolic acidosis and lactic acidosis 8 history of hypertension 9 history of hyperlipidemia 10 shock liver 11 severe lactic acidosis 12 hyperkalemia with some EKG changes, treated. Plan Continue current antibiotic combination of cefepime and Zithromax and Zyvox 600 mg IV every 12 hours. continue pressors for hemodynamic support plan the patient is on norepinephrine. The patient's lactic acid level remains elevated and the patient will receive additional 2 L of IV fluids for now and continue the bicarb infusion. Give the patient 2 L of normal saline for now.also check a serum cortisol level and ethanol start the patient on IV hydrocortisone stress dose. Sputum Gram stain and cultureis consistent with staph aureus. Blood cultures showing MRSA. the chest x-ray was reviewed. The blood gases was reviewed. He is having volume to 550 Management of hyperkalemia as mentioned. It's likely that she will require dialysis. We'll consult nephrology and vascular surgery. We'll consult with the family and proceed with a dialysis catheter insertion of the patient's family is willing to proceed with that. legionella urine antigen is negative monitor the LFTs Monitor renal function and awaiting a follow-up creatinine today Check coagulation profile Ammonia level is elevated Daily chest x-ray and blood gases stop the Lovenox for now and utilized heparin subcu instead 5000 units every 8 hours and apply compression devices lower extremities IV Protonix 40 mg every 24 hours monitor potassium level and the patient will likely require dialysis today Condition is critical and will continue to follow. This evaluation was done and more than 30 minutes and this is a critically care evaluation.family will be contacted and informed of the above-mentioned changes. Condition remains extremely critical. High mortality due to septic shock and multisystem organ failure. Time with Patient: Greater than 30 Time with Patient: Greater than 30
[2020-02-16 06:40] LABS: Band Neutrophils % 31 %; Lymphocytes # (M) 0.48 k/uL (1.0-4.8); Metamyelocytes # (M) 0.12 k/uL (0); Metamyelocytes % 1 %; Monocytes # (M) 0.24 k/uL (0-1.0); Myelocytes # (M) 0.12 k/uL (0); Myelocytes % 1 %; Neutrophils % (M) 63 %; Nucleated Red Blood Cells 29 /100 WBC (0-0); Total Cells Counted 200
[2020-02-16 06:41] LABS: Large Platelets Present
[2020-02-16 06:42] LABS: Anisocytosis (M) Present; Polychromasia Present
[2020-02-16 06:43] LABS: Toxic Vacuolation Present
[2020-02-16] MEDS ORDERED: FUROSEMIDE 10 MG/ML 10 ML VIAL IV STA (06:48)
[2020-02-16 07:01] LABS: Glucose,Whole Blood 175 mg/dL (75-99)
[2020-02-16 07:09] LABS: INR 1.8 (<1.2); Partial Thromboplastin Time 43.2 sec (22.0-30.0)
[2020-02-16] MEDS ORDERED: CISATRACURIUM 2 MG/ML 5 ML VIAL IV ONE ×2 (07:22→07:25)
[2020-02-16] MEDS ORDERED: SODIUM BICARB 8.4% 50 ML SYR (1 MEQ/ML) ONE ×2 (07:44→07:48)
[2020-02-16] MEDS ORDERED: HEPARIN SODIUM,PORCINE 5,000 UNIT/ML 1 ML VIAL SQ SCH (08:00)
[2020-02-16] MEDS: BUDESONIDE 1 MG/2 ML NEBU INHALATION SCH (08:13)
[2020-02-16] MEDS: FORMOTEROL FUMARATE 20 MCG/2 ML NEBU INHALATION SCH (08:14)
--- NOTE | 2020-02-16 08:28 | XR ---
EXAMINATION TYPE: XR chest 1V portable DATE OF EXAM: 02/16/2020 COMPARISON: 02/15/2020 HISTORY: Tube placement TECHNIQUE: Single frontal view of the chest is obtained. FINDINGS: ET tube, NG tube and central line stable. Diffuse left-sided infiltrate. Underlying COPD n oted. No sizable pneumothorax. Heart size stable and within normal limits. Atherosclerotic change aor ta. IMPRESSION: 1. Findings most typical pneumonia correlate clinically. Underlying neoplasm. 2. COPD
[2020-02-16 08:36] VITALS: TEMP 98
[2020-02-16] MEDS ORDERED: ENOXAPARIN 30 MG/0.3 ML SYRINGE SQ SCH (09:00)
[2020-02-16] MEDS ORDERED: MORPHINE SULFATE 2 MG/ML SYRINGE IV PRN (09:56)
[2020-02-16] MEDS ORDERED: MORPHINE SULFATE 4 MG/ML SYRINGE IV PRN (09:56)
[2020-02-16] MEDS ORDERED: LORazepam 2 MG/ML INJ IV PRN (09:56)
[2020-02-16] MEDS ORDERED: MORPHINE SULFATE 4 MG/ML SYRINGE IVP ONE (09:56)
[2020-02-16] MEDS ORDERED: ATROPINE OPHTH SOLN 1% 5ML BTL SUBLINGUAL PRN (09:56)
[2020-02-16] MEDS ORDERED: SCOPOLAMINE 1.5MG/72HR PATCH TRANSDERM SCH (10:00)
[2020-02-16] MEDS ORDERED: MORPHINE SULFATE (100 MG/2 ML) 100 MG in SODIUM CHLORIDE 0.9% 100 ML IV SCH (10:00)
[2020-02-16] MEDS: AZITHROMYCIN 500 MG in SODIUM CHLORIDE 0.9% 250 ML IVPB SCH (10:08)
[2020-02-16] MEDS: CEFEPIME 1 GM in SODIUM CHLORIDE 0.9% 50 ML IVPB SCH (10:08)
[2020-02-16] MEDS: PANTOPRAZOLE 40 MG/10 ML VIAL IVP SCH (10:09)
[2020-02-16] MEDS: LINEZOLID 600 MG in DEXTROSE/WATER 1 300ML.BAG IVPB SCH (10:09)
[2020-02-16] MEDS: CHLORHEXIDINE GLUCONATE 15 ML CUP MUCOUS MEM SCH (10:09)
[2020-02-16 10:17] LABS: Albumin 1.7 g/dL (3.5-5.0); Total Bilirubin 1.8 mg/dL (0.2-1.3); Total Protein 3.5 g/dL (6.3-8.2)
[2020-02-16 10:29] LABS: Potassium 6.2 mmol/L (3.5-5.1)
[2020-02-16 10:31] LABS: Calcium 5.8 mg/dL (8.4-10.2)
[2020-02-16 11:14] VITALS: BP 37/25; PULSE 79; RESP 21
--- NOTE | 2020-02-16 11:59 | PN ---
PROGRESS NOTE Patient is being followed for acute kidney injury. Overnight, patient remained significantly acidotic with worsening of his acidosis and hyperkalemia. Potassium was up to 6.5. It was treated medically; however, repeat potassium was still elevated the 6.2. There is no urine output noted and serum creatinine has been increasing. There were plans to proceed with dialysis for refractory hyperkalemia and acidosis. However, family has decided to proceed with comfort care measures. Vital signs are reviewed. Case was discussed with the nurse. We will sign off. Labs were reviewed as well. We will sign off. MMODL / IJN: [id number] /
--- NOTE | 2020-02-16 21:16 | P.PN ---
Subjective This is a 64 years old male with multiple medical problems as below who presents because of left lung pneumonia with acute hypoxic respiratory failure needing intubation and mechanical ventilation, he has positive blood culture for staph, also he has trending up creatinine 1-1.4-2.4 today currently he is in the ICU in critical condition and cannot provide information. He is kept on several antibiotics including Zithromax, cefepime and Zyvox. He had fever of 101 on admission, no more fever. He is tachycardic and tachypneic. Blood pressure 124/61. Sodium is 133, potassium 5.5, creatinine 2.4, glucose control. Lactic acid is elevated at 2.7. Liver enzymes slightly elevated with AST 402 and ALT 92. Sputum culture and blood culture growing MRSA Renal ultrasound showing no hydronephrosis. Chest x-ray reviewed by me showing consolidation at most of his left lung. 02/16/2020 Patient remains in the ICU in critical condition, he still on mechanical ventilation and followed closely by pulmonary/critical care team He's needing maximum dose of norepinephrine Patient generally is doing good and actually worse than yesterday and prognosis is very poor He is maintained on sodium bicarbonate drip and amiodarone drip. Chest x-ray showing persistent consolidation in the left lung Patient is on antibiotics was Zyvox, cefepime and Zithromax Sputum and blood cultures growing MRSA Review of systems: N/a Active Medications Generic Name Dose Route Start Last Admin Trade Name Freq PRN Reason Stop Dose Admin Acetaminophen 650 mg 02/14/20 00:37 02/14/20 01:24 Acetaminophen Tab 325 Mg Tab PO 650 mg Q6HR PRN Administration Fever and/ or Pain Albuterol/Ipratropium 3 ml 02/13/20 20:00 02/15/20 12:44 Ipratropium-Albuterol 3 Ml Neb INHALATION 3 ml RT-Q4H AIMEE Administration Budesonide 1 mg 02/13/20 20:00 02/15/20 09:18 Budesonide 1 Mg/2 Ml Nebu INHALATION 1 mg RT-BID AIMEE Administration Chlorhexidine Gluconate 15 ml 02/14/20 09:00 02/15/20 09:58 Chlorhexidine Gluconate 15 Ml Cup MUCOUS MEM 15 ml BID AIMEE Administration Enoxaparin Sodium 30 mg 02/16/20 09:00 Enoxaparin 30 Mg/0.3 Ml Syringe SQ DAILY AIMEE Formoterol Fumarate 20 mcg 02/13/20 20:00 02/15/20 09:18 Formoterol Fumarate 20 Mcg/2 Ml Nebu INHALATION 20 mcg RT-BID AIMEE Administration Azithromycin 500 mg/ Sodium 250 mls @ 250 mls/hr 02/14/20 09:00 02/15/20 09:59 Chloride IVPB 250 mls/hr DAILY AIMEE Administration Propofol 1,000 mg/ IV Solution 100 mls @ 0 mls/hr 02/14/20 00:30 02/15/20 04:55 IV 30 mcg/kg/min .Q0M AIMEE 10.566 mls/hr Administration Protocol Titrate Amiodarone HCl 300 mg/ 250 mls @ 25 mls/hr 02/14/20 20:15 02/14/20 20:29 Dextrose/Water IV 02/15/20 14:14 0.5 mg/min .Q10H AIMEE 25 mls/hr Administration Protocol 0.5 MG/MIN Norepinephrine Bitartrate 8 mg 258 mls @ 5.679 mls/hr 02/14/20 23:00 02/15/20 06:35 / Sodium Chloride IV 0.2 mcg/kg/min .Q24H AIMEE 22.717 mls/hr Titration Protocol 0.05 MCG/KG/MIN Sodium Bicarbonate 150 ml/ 1,150 mls @ 100 mls/hr 02/15/20 07:30 02/15/20 09:58 Dextrose/Water IV 100 mls/hr .[id number] AIMEE Administration Linezolid 600 mg/ IV Solution 300 mls @ 150 mls/hr 02/15/20 09:00 02/15/20 10:00 IVPB 150 mls/hr Q12HR AIMEE Administration Protocol Cefepime HCl 1 gm/ Sodium 50 mls @ 12.5 mls/hr 02/15/20 21:00 Chloride IVPB Q12HR AIMEE Naloxone HCl 0.2 mg 02/13/20 16:52 Naloxone 0.4 Mg/Ml 1 Ml Vial IV Q2M PRN Opioid Reversal Pantoprazole Sodium 40 mg 02/14/20 09:00 02/15/20 09:58 Pantoprazole 40 Mg/10 Ml Vial IVP 40 mg DAILY AIMEE Administration Objective - Vital Signs Vital signs: Vital Signs Temp 98.7 F 02/16/20 03:30 Pulse 98 02/16/20 07:00 Resp 21 02/16/20 07:00 BP 89/50 02/16/20 07:00 Pulse Ox 89 L 02/16/20 06:30 Intake & Output 02/15/20 02/16/20 02/16/20 18:59 06:59 18:59 Intake Total 296.155 6922.310 2150 Output Total 60 15 Balance 503.890 2333.310 2150 Weight 68.1 kg Intake: IV 220 2450 2150 Dextrose 5% in Water 1, 1300 150 000 ml @ 150 mls/hr IV . Q7H40M AIMEE with Sodium Bicarb (1 Meq/ml) 150 ml Rx#:[id number] Sodium Chloride 220 1150 2000 Intake, IV Titration 184.281 330.310 Amount Norepinephrine 8 mg In 184.281 230.310 Sodium Chloride 0.9% 250 ml @ 0.05 MCG/KG/MIN 5. 679 mls/hr IV .Q24H AIMEE Rx#:[id number] propofoL 1,000 mg In 100 Empty Bag 1 bag @ Titrate IV .Q0M AIMEE Rx#: [id number] Tube Feeding 220 Other 30 Output: Urine 60 15 Other: Voiding Method Indwelling Catheter Indwelling Catheter ABP, PAP, CO, CI - Last Documented Arterial Blood Pressure 71/47 - Exam -GENERAL: The patient is intubated and sedated HEENT: Pupils are round and equally reacting to light. EOMI. No scleral icterus. No conjunctival pallor. Normocephalic, atraumatic. No pharyngeal erythema. No thyromegaly. CARDIOVASCULAR: S1 and S2 present. No murmurs, rubs, or gallops. -PULMONARY: Chest is clear to auscultation, no wheezing or crackles. Bronchial breath sounds on the left side ABDOMEN: Soft, nontender, nondistended, normoactive bowel sounds. No palpable organomegaly. MUSCULOSKELETAL: No joint swelling or deformity. EXTREMITIES: No cyanosis, clubbing, or pedal edema. NEUROLOGICAL: Gross neurological examination did not reveal any focal deficits. SKIN: No rashes. no petechiae. - Labs CBC & Chem 7: 02/16/20 04:20 02/16/20 09:17 Labs: Abnormal Lab Results - Last 24 Hours (Table) 12/10/2702/15/20 02/15/20 Range/Units 10:15 11:59 16:30 WBC (3.8-10.6) k/uL RBC (4.30-5.90) m/uL Hgb (13.0-17.5) gm/dL Hct (39.0-53.0) % MCV (80.0-100.0) fL MCHC (31.0-37.0) g/dL Neutrophils # (Manual) (1.3-7.7) k/uL Lymphocytes # (Manual) (1.0-4.8) k/uL Metamyelocytes # (Man) (0) k/uL Myelocytes # (Manual) (0) k/uL Nucleated RBCs (0-0) /100 WBC PT (9.0-12.0) sec INR (<1.2) APTT (22.0-30.0) sec ABG pH (7.35-7.45) ABG pCO2 (35-45) mmHg ABG HCO3 (21-25) mmol/L ABG Total CO2 (19-24) mmol/L Sodium (137-145) mmol/L Potassium (3.5-5.1) mmol/L Chloride (98-107) mmol/L Carbon Dioxide (22-30) mmol/L BUN (9-20) mg/dL Creatinine (0.66-1.25) mg/dL Glucose (74-99) mg/dL POC Glucose (mg/dL) 109 H (75-99) mg/dL Plasma Lactic Acid Elio 2.7 H* 8.4 H* (0.7-2.0) mmol/L Calcium (8.4-10.2) mg/dL Total Bilirubin (0.2-1.3) mg/dL AST (17-59) U/L ALT (4-49) U/L Ammonia (<30) umol/L Total Protein (6.3-8.2) g/dL Albumin (3.5-5.0) g/dL Procalcitonin (0.02-0.09) ng/mL 02/15/20 02/15/20 02/15/20 Range/Units 18:25 19:35 19:35 WBC (3.8-10.6) k/uL RBC (4.30-5.90) m/uL Hgb (13.0-17.5) gm/dL Hct (39.0-53.0) % MCV (80.0-100.0) fL MCHC (31.0-37.0) g/dL Neutrophils # (Manual) (1.3-7.7) k/uL Lymphocytes # (Manual) (1.0-4.8) k/uL Metamyelocytes # (Man) (0) k/uL Myelocytes # (Manual) (0) k/uL Nucleated RBCs (0-0) /100 WBC PT (9.0-12.0) sec INR (<1.2) APTT (22.0-30.0) sec ABG pH (7.35-7.45) ABG pCO2 (35-45) mmHg ABG HCO3 (21-25) mmol/L ABG Total CO2 (19-24) mmol/L Sodium 135 L (137-145) mmol/L Potassium 6.1 H* (3.5-5.1) mmol/L Chloride 111 H (98-107) mmol/L Carbon Dioxide 12 L (22-30) mmol/L BUN 85 H (9-20) mg/dL Creatinine 3.36 H (0.66-1.25) mg/dL Glucose 52 L (74-99) mg/dL POC Glucose (mg/dL) (75-99) mg/dL Plasma Lactic Acid Elio 8.3 H* (0.7-2.0) mmol/L Calcium 6.4 L* (8.4-10.2) mg/dL Total Bilirubin (0.2-1.3) mg/dL AST 2550 H (17-59) U/L ALT 573 H (4-49) U/L Ammonia (<30) umol/L Total Protein 3.7 L (6.3-8.2) g/dL Albumin 1.6 L (3.5-5.0) g/dL Procalcitonin 88.62 H (0.02-0.09) ng/mL 02/16/20 02/16/20 02/16/20 Range/Units 00:15 00:20 01:00 WBC (3.8-10.6) k/uL RBC (4.30-5.90) m/uL Hgb (13.0-17.5) gm/dL Hct (39.0-53.0) % MCV (80.0-100.0) fL MCHC (31.0-37.0) g/dL Neutrophils # (Manual) (1.3-7.7) k/uL Lymphocytes # (Manual) (1.0-4.8) k/uL Metamyelocytes # (Man) (0) k/uL Myelocytes # (Manual) (0) k/uL Nucleated RBCs (0-0) /100 WBC PT (9.0-12.0) sec INR (<1.2) APTT (22.0-30.0) sec ABG pH (7.35-7.45) ABG pCO2 (35-45) mmHg ABG HCO3 (21-25) mmol/L ABG Total CO2 (19-24) mmol/L Sodium (137-145) mmol/L Potassium 6.5 H* (3.5-5.1) mmol/L Chloride (98-107) mmol/L Carbon Dioxide (22-30) mmol/L BUN (9-20) mg/dL Creatinine (0.66-1.25) mg/dL Glucose (74-99) mg/dL POC Glucose (mg/dL) 118 H (75-99) mg/dL Plasma Lactic Acid Elio 10.0 H* (0.7-2.0) mmol/L Calcium (8.4-10.2) mg/dL Total Bilirubin (0.2-1.3) mg/dL AST (17-59) U/L ALT (4-49) U/L Ammonia (<30) umol/L Total Protein (6.3-8.2) g/dL Albumin (3.5-5.0) g/dL Procalcitonin (0.02-0.09) ng/mL 02/16/20 02/16/20 02/16/20 Range/Units 04:20 04:20 04:20 WBC 12.0 H (3.8-10.6) k/uL RBC 3.63 L (4.30-5.90) m/uL Hgb 11.4 L (13.0-17.5) gm/dL Hct 37.2 L (39.0-53.0) % MCV 102.5 H (80.0-100.0) fL MCHC 30.8 L (31.0-37.0) g/dL Neutrophils # (Manual) 11.20 H (1.3-7.7) k/uL Lymphocytes # (Manual) 0.48 L (1.0-4.8) k/uL Metamyelocytes # (Man) 0.12 H (0) k/uL Myelocytes # (Manual) 0.12 H (0) k/uL Nucleated RBCs 29 H (0-0) /100 WBC PT (9.0-12.0) sec INR (<1.2) APTT (22.0-30.0) sec ABG pH (7.35-7.45) ABG pCO2 (35-45) mmHg ABG HCO3 (21-25) mmol/L ABG Total CO2 (19-24) mmol/L Sodium 133 L (137-145) mmol/L Potassium 6.1 H* (3.5-5.1) mmol/L Chloride (98-107) mmol/L Carbon Dioxide 13 L (22-30) mmol/L BUN 88 H (9-20) mg/dL Creatinine 3.83 H (0.66-1.25) mg/dL Glucose 193 H (74-99) mg/dL POC Glucose (mg/dL) (75-99) mg/dL Plasma Lactic Acid Elio 9.8 H* (0.7-2.0) mmol/L Calcium 6.5 L (8.4-10.2) mg/dL Total Bilirubin 1.9 H (0.2-1.3) mg/dL AST 10814 H (17-59) U/L ALT 1965 H (4-49) U/L Ammonia 49 H (<30) umol/L Total Protein 3.8 L (6.3-8.2) g/dL Albumin 1.8 L (3.5-5.0) g/dL Procalcitonin (0.02-0.09) ng/mL 02/16/20 02/16/20 02/16/20 Range/Units 04:27 04:51 06:05 WBC (3.8-10.6) k/uL RBC (4.30-5.90) m/uL Hgb (13.0-17.5) gm/dL Hct (39.0-53.0) % MCV (80.0-100.0) fL MCHC (31.0-37.0) g/dL Neutrophils # (Manual) (1.3-7.7) k/uL Lymphocytes # (Manual) (1.0-4.8) k/uL Metamyelocytes # (Man) (0) k/uL Myelocytes # (Manual) (0) k/uL Nucleated RBCs (0-0) /100 WBC PT 18.0 H (9.0-12.0) sec INR 1.8 H (<1.2) APTT 43.2 H (22.0-30.0) sec ABG pH 7.08 L* (7.35-7.45) ABG pCO2 46 H (35-45) mmHg ABG HCO3 14 L (21-25) mmol/L ABG Total CO2 15 L (19-24) mmol/L Sodium (137-145) mmol/L Potassium (3.5-5.1) mmol/L Chloride (98-107) mmol/L Carbon Dioxide (22-30) mmol/L BUN (9-20) mg/dL Creatinine (0.66-1.25) mg/dL Glucose (74-99) mg/dL POC Glucose (mg/dL) 201 H (75-99) mg/dL Plasma Lactic Acid Elio (0.7-2.0) mmol/L Calcium (8.4-10.2) mg/dL Total Bilirubin (0.2-1.3) mg/dL AST (17-59) U/L ALT (4-49) U/L Ammonia (<30) umol/L Total Protein (6.3-8.2) g/dL Albumin (3.5-5.0) g/dL Procalcitonin (0.02-0.09) ng/mL 02/16/20 Range/Units 06:50 WBC (3.8-10.6) k/uL RBC (4.30-5.90) m/uL Hgb (13.0-17.5) gm/dL Hct (39.0-53.0) % MCV (80.0-100.0) fL MCHC (31.0-37.0) g/dL Neutrophils # (Manual) (1.3-7.7) k/uL Lymphocytes # (Manual) (1.0-4.8) k/uL Metamyelocytes # (Man) (0) k/uL Myelocytes # (Manual) (0) k/uL Nucleated RBCs (0-0) /100 WBC PT (9.0-12.0) sec INR (<1.2) APTT (22.0-30.0) sec ABG pH (7.35-7.45) ABG pCO2 (35-45) mmHg ABG HCO3 (21-25) mmol/L ABG Total CO2 (19-24) mmol/L Sodium (137-145) mmol/L Potassium (3.5-5.1) mmol/L Chloride (98-107) mmol/L Carbon Dioxide (22-30) mmol/L BUN (9-20) mg/dL Creatinine (0.66-1.25) mg/dL Glucose (74-99) mg/dL POC Glucose (mg/dL) 175 H (75-99) mg/dL Plasma Lactic Acid Elio (0.7-2.0) mmol/L Calcium (8.4-10.2) mg/dL Total Bilirubin (0.2-1.3) mg/dL AST (17-59) U/L ALT (4-49) U/L Ammonia (<30) umol/L Total Protein (6.3-8.2) g/dL Albumin (3.5-5.0) g/dL Procalcitonin (0.02-0.09) ng/mL Microbiology - Last 24 Hours (Table) 02/13/20 18:02 Gram Stain - Final Sputum Sputum Culture - Final Methicillin resist S. aureus Assessment and Plan Assessment: Left lung pneumonia secondary to MRSA Acute hypoxic respiratory failure secondary to left lung pneumonia MRSA bacteremia/septicemia Acute kidney injury COPD Hypertension Hyperlipidemia Mild protein calorie malnutrition Plan: This is a 64 years old who presents with worsening left pneumonia with respiratory failure. Continue with vent management as per pulmonary/critical care team. Continue with Zyvox and other antibiotics. Follow-up recommendation by pulmonary and nephrology team Labs and medication were reviewed.. Continue same treatment. Continue with symptomatic treatment. Resume home medication. Monitor lytes and vitals. DVT and GI prophylaxis. Further recommendationsas per clinical course of the patient DVT prophylaxis: Subcutaneous Lovenox GI Prophylaxis: Ppi Prognosis is guarded
--- NOTE | 2020-02-16 21:20 | P.DS ---
Providers Date of admission: 02/13/20 16:52 Attending physician: Paige Li Consults: 02/13/20 16:51 Consult Physician Stat Consulting Provider: Kvng Olivares Consult Reason/Comments: icu patient, bronchs obstruction Do you want consulting provider notified?: Already Contacted 02/15/20 07:20 Consult Physician Stat Consulting Provider: Venus Gorman Consult Reason/Comments: VISHNU Do you want consulting provider notified?: Yes 02/15/20 17:24 Consult Physician Routine Consulting Provider: Ace Driscoll Consult Reason/Comments: Sepsis Do you want consulting provider notified?: Yes, Notify in am Primary care physician: Francisco Ovidio [facility] Course: Diagnoses: Left lung pneumonia secondary to MRSA Acute hypoxic respiratory failure secondary to left lung pneumonia MRSA bacteremia/septicemia Acute kidney injury COPD Hypertension Hyperlipidemia Mild protein calorie malnutrition Hospital course: This is a 64 years old male with multiple medical problems was admitted for left lung pneumonia which involved almost the entire lung tissue that needed intubation and mechanical ventilation and very high doses of pressors, cultures of the sputum on the blood work showing MRSA, despite treatment with broad- spectrum antibiotics, he needed high dose pressors, he developed multiorgan failure. Patient was followed closely by pulmonary/critical care team. Patient did not improve and continued to do worse.Eventually patient was on 02/15 at 11:17. Please refer to nursing note for more details Patient Condition at Discharge: Critical Plan - Discharge Summary New Discharge Prescriptions: No Action Fluticasone Nasal [place] [Flonase Nasal [place]] 1 spray EA NOSTRIL DAILY Simvastatin [Zocor] 40 mg PO HS Albuterol Nebulized [Ventolin Nebulized] 2.5 mg INHALATION RT-Q6H PRN PRN Reason: Shortness Of Breath Metoprolol Succinate [Toprol XL] 50 mg PO DAILY Ipratropium/Albuter 20-100Mcg [Combivent Respimat 20-100Mcg Inhaler] 1 puff INHALATION RT-QID Oxybutynin ER [Ditropan Xl] 15 mg PO DAILY Omeprazole 20 mg PO DAILY Fluticasone Propionate [Flovent Hfa 110 mcg] 1 puff INHALATION RT-DAILY Discharge Medication List Albuterol Nebulized [Ventolin Nebulized] 2.5 mg INHALATION RT-Q6H PRN 08/25/15 [History] Fluticasone Nasal [place] [Flonase Nasal [place]] 1 spray EA NOSTRIL DAILY 08/25/15 [History] Simvastatin [Zocor] 40 mg PO HS 08/25/15 [History] Fluticasone Propionate [Flovent Hfa 110 mcg] 1 puff INHALATION RT-DAILY 02/13/20 [History] Ipratropium/Albuter 20-100Mcg [Combivent Respimat 20-100Mcg Inhaler] 1 puff INHALATION RT-QID 02/13/20 [History] Metoprolol Succinate [Toprol XL] 50 mg PO DAILY 02/13/20 [History] Omeprazole 20 mg PO DAILY 02/13/20 [History] Oxybutynin ER [Ditropan Xl] 15 mg PO DAILY 02/13/20 [History] Follow up Appointment(s)/Referral(s): Francisco Nolan DO [Primary Care Provider] - 1-2 days Discharge Disposition: - Preliminary Cause of Preliminary Cause of : MRSA pneumonia
--- NOTE | 2020-02-18 13:06 | CDI ---
Documentation Clarification Form Date: 02/18/2020 12:52:57 PM From: Nikkie ReesEchavarriaCARY [email or web address], CCDS Admit Date: 02/13/2020 04:52:00 PM Patient Name: John Villanueva Visit Number: [id number] Discharge Date: 02/16/2020 02:41:00 PM ATTENTION: The Clinical Documentation Specialists (CDI) and [facility] Coding Staff appreciate your assistance in clarifying documentation. Please respond to the clarification below the line at the bottom and electronically sign. The CDI & [facility] Coding staff will review the response and follow-up if needed. Please note: Queries are made part of the Legal Health Record. If you have any questions, please contact the author of this message via ITS. Dr. Greta Naqvi: Atrial Fibrillation is documented in the 02/14 Pulmonary/Critical Care Progress Note: "The patient is also having runs of atrial fibrillation with rapid ventricular response/". Also documented in the 02/14 Nephrology Consult and the 02/15 Pulmonary/Critical Care Progress Notes. Cardiology was not consulted. History/Risk Factors: COPD, Hypertension, Hyperlipidemia, Smoker. Clinical Indicators: Presented to the ED on 02/12 with weakness, SOB & syncope via EMS. Intubated & put on vent, admitted to ICU with Acute Hypoxic Respiratory Failure. Patient was also Septic with positive blood cultures (MRSA), in VISHNU, developed multi-organ failure and on 02/15. EKG 02/12: R 124 Sinus tachycardia with PACs, Possible left atrial enlargement, Left anterior fascicular block. Treatment 02/12: IV fluid 1,000 @ 999 mls/hr, IV fluid 1,000 mls @ 130 mls/hr q7H, IV Pepcid, IV Solumedrol, IV Amidate, IV Quelicin, IV Propofol, IV Cefepime, IV Vancomycin, IV Versed. 02/13: IV Propofol, IV Vancomycin, IV Rocephin, Lovenox sq, IV fluid 1,000 mls @ 99 mls/hr q1 x4, IV Dextrose/Water w/Amiodarone x3. 02/14: IV Cefepime, IV Calcium Gluconate, IV Na Bicarb, IV Insulin 02/15: IV Amiodarone, IV NaBicarb x4 IV Insulin, IV fluid 2,000 mls @ 999 mls/hr, IV Lasix, IV Nimbex In your professional opinion, can you please clarify the type of Atrial Fibrillation, if known? Chronic/Permanent Paroxysmal Persistent Other, please specify Unable to determine (Last Revision: June 2017) Paroxysmal MTDD
== END 2020-02-16 14:41 | disposition expired | DRG 871 ==
LOC: EC 12:29 → 2SICU 16:52
PROVIDERS: ADMIT Internal Medicine; ATTEND Internal Medicine
PROC: 0BH17EZ Insertion of Endotracheal Airway into Trachea, Via Natural or Artificial Opening (ICD-10-PCS; principal; 2020-02-13)
PROC: 5A1945Z Respiratory Ventilation, 24-96 Consecutive Hours (ICD-10-PCS; principal; 2020-02-13)
PROC: 0D9670Z Drainage of Stomach with Drainage Device, Via Natural or Artificial Opening (ICD-10-PCS; 2020-02-13)
PROC: 3E033XZ Introduction of Vasopressor into Peripheral Vein, Percutaneous Approach (ICD-10-PCS; 2020-02-13)
PROC: 02HV33Z Insertion of Infusion Device into Superior Vena Cava, Percutaneous Approach (ICD-10-PCS; 2020-02-14)
PROC: 03HY32Z Insertion of Monitoring Device into Upper Artery, Percutaneous Approach (ICD-10-PCS; 2020-02-14)
PROC: 4A133J1 Monitoring of Arterial Pulse, Peripheral, Percutaneous Approach (ICD-10-PCS; 2020-02-14)
PROC: 4A133B1 Monitoring of Arterial Pressure, Peripheral, Percutaneous Approach (ICD-10-PCS; 2020-02-14)
PROC: 3E0G76Z Introduction of Nutritional Substance into Upper GI, Via Natural or Artificial Opening (ICD-10-PCS; 2020-02-16)
DX: A41.02 Sepsis due to Methicillin resistant Staphylococcus aureus (principal); J15.212 Pneumonia due to Methicillin resistant Staphylococcus aureus; J96.01 Acute respiratory failure with hypoxia; N17.0 Acute kidney failure with tubular necrosis; K72.00 Acute and subacute hepatic failure without coma; R65.21 Severe sepsis with septic shock; E44.1 Mild protein-calorie malnutrition; E87.2 Acidosis; J44.0 Chronic obstructive pulmonary disease with (acute) lower respiratory infection; F17.210 Nicotine dependence, cigarettes, uncomplicated; E78.5 Hyperlipidemia, unspecified; E87.5 Hyperkalemia; F32.9 Major depressive disorder, single episode, unspecified; I10 Essential (primary) hypertension; I48.0 Paroxysmal atrial fibrillation; Z20.828 Contact with and (suspected) exposure to other viral communicable diseases; Z91.81 History of falling; Z79.899 Other long term (current) drug therapy; Z66 Do not resuscitate; Z51.5 Encounter for palliative care; Z88.8 Allergy status to other drugs, medicaments and biological substances; Z88.5 Allergy status to narcotic agent; Z88.0 Allergy status to penicillin; Z91.013 Allergy to seafood; Z78.1 Physical restraint status; Z68.21 Body mass index [BMI] 21.0-21.9, adult; Z79.51 Long term (current) use of inhaled steroids
CPT/HCPCS: 31500; 36415; 36600; 71045; 71275; 76770; 80053; 81001; 82140; 82533; 82550; 82805; 83605; 83735; 84132; 84145; 84484; 85025; 85379; 85610; 85730; 86140; 87040; 87070; 87077; 87186; 87205; 87449; 87635; 93005; 93306; 94002; 94003; 94640; 96361; 96365; 96366; 96367; 96375; 99291